=== PATIENT | female | born 1935 | race Caucasian/White ===

== ENCOUNTER → 2018-03-15 09:36 | Outpatient (CLI) | payer MEDICARE, SELFPAY | PROVIDERS: PCP Internal Medicine; Visit Provider Internal Medicine | DX: M85.852 Other specified disorders of bone density and structure, left thigh (principal); Z78.0 Asymptomatic menopausal state | CPT/HCPCS: 77080 ==

== ENCOUNTER → 2019-03-19 10:25 | Outpatient (CLI) | payer MEDICARE, SELFPAY ==
--- NOTE | 2019-03-19 | DI.MG.S_ITS ---
BILATERAL DIGITAL SCREENING MAMMOGRAM 3D/2D WITH CAD: 03/19/2019 CLINICAL: Routine screening. Comparison is made to exams dated: 05/22/2017 mammogram - [facility], 01/07/2010 mammogram, and 09/14/2007 mammogram - [facility]. There are scattered fibroglandular elements in both breasts. Current study was also evaluated with a Computer Aided Detection (CAD) system. No significant masses, calcifications, or other findings are seen in either breast. There has been no significant interval change. IMPRESSION: NEGATIVE There is no mammographic evidence of malignancy. A 1 year screening mammogram is recommended. This exam was interpreted at Station ID: [id number]. NOTE: For mammograms, a report in lay terms will be sent to the patient. Approximately 15% of breast malignancies will not be visualized mammographically. In the management of a palpable breast mass, a negative mammogram must not discourage biopsy of a clinically suspicious lesion. Electronically Signed By: Angelo kaba/ramon:03/21/2019 15:56:29 letter sent: Normal Exam ACR BI-RADS Category 1: Negative [id number]
== END ==
PROVIDERS: PCP Internal Medicine; Visit Provider Internal Medicine
DX: Z12.31 Encounter for screening mammogram for malignant neoplasm of breast (principal)
CPT/HCPCS: 77063; 77067

== ENCOUNTER → 2019-06-06 15:24 | Outpatient (CLI) | payer MEDICARE, SELFPAY ==
--- NOTE | 2019-06-06 | DI.RAD.S_ITS ---
PROCEDURE: XR LUMBAR SPINE 2-3V INDICATIONS: Low back pain TECHNIQUE: 3 views of the lumbar spine were acquired. COMPARISON: None. FINDINGS: Bones: 5 [id number] vertebrae are present. There is mildly levoscoliotic bony alignment. No wedge type vertebral body compression fractures are found that there is a superior endplate mild impaction fracture involving the L2 vertebral body, best seen on the lateral view. The appearance is suggestive of acute or subacute injury. No suspicious bony lesions. Soft tissues: Overlying bowel gas pattern is normal. No suspicious soft tissue calcifications. IMPRESSION: No wedge type compression fracture seen, however there is a mild superior endplate impaction at L2, chronicity uncertain but considered more likely acute or subacute and chronic by appearance. Dictated by: Darrel Ferris M.D. on 06/06/2019 at 16:35 Approved by: Darrel Ferris M.D. on 06/06/2019 at 16:37
--- NOTE | 2019-06-06 | DI.RAD.S_ITS ---
PROCEDURE: XR PELVIS 1-2V INDICATIONS: Low back pain TECHNIQUE: Single frontal view of the pelvis acquired. COMPARISON: None. FINDINGS: Bones: No fractures or dislocations. No suspicious bony lesions. Soft tissues: Visualized bowel gas pattern is normal. No suspicious soft tissue calcifications. IMPRESSION: No trauma found. Dictated by: Darrel Ferris M.D. on 06/06/2019 at 16:37 Approved by: Darrel Ferris M.D. on 06/06/2019 at 16:37
== END ==
PROVIDERS: PCP Internal Medicine; Visit Provider Internal Medicine
DX: M54.5 Low back pain (principal)
CPT/HCPCS: 72100; 72170

== ENCOUNTER 2019-08-21 15:10 | Observation (INO) | payer MEDICARE, SELFPAY ==
[2019-08-21] VITALS (8 sets, daily range): BP systolic 140–159; BP diastolic 58–82; PULSE 62–74; RESP 20; TEMP 36.4–36.6; O2SAT 97–99; BMI 26.9
--- NOTE | 2019-08-21 | DI.ECHO.S_ITS ---
[facility] +---------+ : : [address] : : : : [id number] : : : : Phone: [phone] Echocardiogram Report + + :Name: LUISA BATISTA Study Date: 08/22/2019 Height: 66 in : :[facility] Weight: 166 lb : : Gender: Female BSA: 1.8 m2 : :: 1935 Age: 83 yrs BP: 144/67 mmHg: :Reason For Study: CVA : : Performed By: [facility] Staff : :Referring: DIMITRI ROBLERO : + + Interpretation Summary The left ventricle is borderline dilated. Left ventricular systolic function is low normal. The ejection fraction is estimated to be 50-55%. There are no obvious focal wall motion abnormalities noted but poor endocardial definition reduces the sensitivity for the detection of such. The right ventricle is not well visualized. There is a pacemaker lead in the right ventricle. The right ventricular systolic pressure is estimated to be at least 23 mmHg based on an estimated right atrial pressure of 3 mm Hg. The left atrium is moderately dilated. Right atrium not well visualized. There is no Doppler evidence for an interatrial shunt. There is no significant valvular heart disease. The aortic root is normal size. No obvious source for cardiac embolic TIA/CVA. Procedure: A two-dimensional transthoracic echocardiogram with color flow and Doppler was performed. The study quality was technically adequate. There is no prior echocardiogram noted for this patient. The patient was in normal sinus rhythm during the exam. Left Ventricle: The left ventricle is borderline dilated. There is normal left ventricular wall thickness. Left ventricular systolic function is low normal. The ejection fraction is estimated to be 50-55%. There are no obvious focal wall motion abnormalities noted but poor endocardial definition reduces the sensitivity for the detection of such. Right Ventricle: The right ventricle is not well visualized. There is a pacemaker lead in the right ventricle. Atria: The left atrium is moderately dilated. Right atrium not well visualized. There is a catheter/pacemaker lead seen in the right atrium. The interatrial septum is intact with no evidence for an atrial septal defect. There is no Doppler evidence for an interatrial shunt. Mitral Valve: The mitral valve is normal in structure and function. There is mild mitral annular calcification. There is trace mitral regurgitation. Aortic Valve: The aortic valve is trileaflet. The aortic valve opens well. There is mild aortic valve sclerosis. No aortic regurgitation is present. Tricuspid Valve: The tricuspid valve is not well visualized. There is mild tricuspid regurgitation. The right ventricular systolic pressure is estimated to be at least 23 mmHg based on an estimated right atrial pressure of 3 mm Hg. Pulmonic Valve: The pulmonic valve is not well visualized. There is trace pulmonic regurgitation. There is no significant valvular heart disease. Great Vessels: The aortic root is normal size. The dimensions of the ascending aorta are normal. The pulmonary artery is normal size. The IVC is of normal diameter and collapses greater than 50% with a sniff. This suggests a low right atrial pressure of 3 mm Hg. Pericardium/ Pleura There is no pericardial effusion. There is no pleural effusion. MMode/2D Measurements & Calculations LVIDd: 5.2 cm LVOT diam: 2.0 cm LVIDs: 3.4 cm Ao root diam: 3.2 cm FS: 35.7 % Aortic Jxn: 2.7 cm EPSS: 1.1 cm IVSd: 0.97 cm LVPWd: 1.0 cm LV benavides. diameter/BSA (cm/m^2): 2.8 LV sys. diameter/BSA (cm/m^2): 1.8 LA A2 area: 22.8 cm2 IVC diam: 1.7 cm LA A4 area: 26.0 cm2 LA length (vol): 5.8 cm LA vol: 86.4 ml LA vol index: 46.8 ml/m2 Doppler Measurements & Calculations Ao V2 max: 167.5 cm/sec LVOT Max Tomy: 73.3 cm/sec Ao V2 mean: 112.7 cm/sec LV V1 max P.1 mmHg Ao max P.2 mmHg LV V1 VTI: 17.6 cm Ao mean P.8 mmHg CHEPE(I,D): 1.3 cm2 Ao V2 VTI: 39.4 cm CHEPE(V,D): 1.3 cm2 sev ratio: 0.45 CHEPE indexed to BSA (cm^2/m^2): 0.73 MV E max tomy: 77.5 cm/sec TR max tomy: 212.1 cm/sec MV A max tomy: 86.3 cm/sec TR max P.0 mmHg MV E/A: 0.90 PA V2 max: 73.2 cm/sec Med Peak E' Tomy: 6.5 cm/sec PA V2 mean: 51.0 cm/sec E/E' med: 11.9 PA mean P.2 mmHg Lat Peak E' Tomy: 7.9 cm/sec PA Accel Time: 0.12 sec E/E' lat: 9.7 E/e' average: 10.8 MV dec time: 0.20 sec SV(LVOT): 52.8 ml Reading Physician:01:38 PM
--- NOTE | 2019-08-21 15:12 | DI.CT.S_ITS ---
PROCEDURE: CT HEAD/BRAIN WO CON INDICATIONS: slurring of speech,TPA candidate TECHNIQUE: Noncontrast 4.5 mm thick angled axial sections acquired from the foramen magnum to the vertex, with coronal and sagittal reformats. For radiation dose reduction, the following was used: automated exposure control, adjustment of mA and/or kV according to patient size. COMPARISON: [facility], CT, HEAD WITHOUT CONTRAST, 06/22/2014, 21:40. FINDINGS: Image quality: Excellent. CSF spaces: Basal cisterns are patent. No extra-axial fluid collections. The ventricles are symmetric in size and shape. Brain: No intracranial bleeds or masses. There is cerebral volume loss for age, with resultant ventricular and sulcal prominence. There are periventricular and deep white matter chronic small vessel ischemic changes. There is encephalomalacia related to an old right [employer] distribution infarct. There is intracranial internal carotid artery atherosclerosis. Skull and face: Calvarium and visualized facial bones appear intact, without suspicious lesions. Sinuses: Visualized sinuses and mastoids are clear. The right nasal polyp. IMPRESSION: 1. Age-related line loss and mild small vessel ischemic change. 2. Old right [employer] SUPER[employer] distribution infarct. 3. No evidence of acute stroke, hemorrhage, or mass. Comment: Findings were discussed with Dr. Mahoney at the time of study dictation on 08/21/19 at 1537 hrs. Dictated by: Zain Sood M.D. on 08/21/2019 at 15:35 Approved by: Zain Sood M.D. on 08/21/2019 at 15:38
--- NOTE | 2019-08-21 15:29 | ED_ITS ---
HPI - Neuro Symptoms/Deficit General Chief Complaint: Neuro Symptoms/Deficit Stated Complaint: difficulty speaking, wobbling Time Seen by Provider: 08/21/19 15:12 Source: patient, family and EMS Mode of arrival: EMS Limitations: no limitations History of Present Illness HPI Narrative: The patient is an 83-year-old female with history of CVA and pacemaker presenting as code stroke with slurring of speech that started at 2:00 p.m.. states that at 2:00 p.m. he noticed that her speech was very thickened and she was difficult to understand. She no facial droop or unilateral weakness. She does take Plavix daily for her previous stroke and she had cardiac issues when her pacemaker was placed. She is currently able to follow commands and I am able to understand her. She is confused about the year. Onset (ago): hour(s) (1.5) Timing confirmed by: spouse Location: speech History of same: Yes Severity: mild Context: sudden onset Related Data Home Medications Medication Instructions Recorded Confirmed amlodipine 5 mg PO DAILY 08/21/19 08/21/19 aspirin [Adult Low Dose Aspirin] 81 mg PO DAILY 08/21/19 08/21/19 carvedilol 6.25 mg PO BID 08/21/19 08/21/19 cholecalciferol (vitamin D3) 1,000 unit PO DAILY 08/21/19 08/21/19 [Vitamin D3] clopidogrel [Plavix] 75 mg PO DAILY 08/21/19 08/21/19 dorzolamide 1 drp EYE-BOTH BID 08/21/19 08/21/19 prednisone 10 mg PO SEEINSTR 08/21/19 08/21/19 rosuvastatin 10 mg PO DAILY 08/21/19 08/21/19 travoprost [Travatan Z] 1 drp EYE-BOTH DAILY 08/21/19 08/21/19 zoledronic [id number] See Rx Instructions .ROUTE .COMPLEX 08/21/19 08/21/19 [Reclast] zolpidem 5 mg PO BEDTIME PRN 08/21/19 08/21/19 Allergies Allergy/AdvReac Type Severity Reaction Status Date / Time paroxetine AdvReac Drowsy Verified 08/21/19 18:18 IODINE Allergy Unknown Hives Uncoded 08/21/19 18:18 Review of Systems Review of Systems Narrative: GENERAL: Denies chills, fatigue, malaise, fever, sweats, travel HEENT: Denies sinus pain, ear pain, sore throat, difficulty swallowing, neck pain RESPIRATORY: Denies dyspnea, cough, wheezing, hemoptysis, sputum. CARDIOVASCULAR: Denies chest pain, palpitations, orthopnea, edema GASTROINTESTINAL: See HPI : Denies dysuria, frequency, incontinence, hematuria, urinary retention, flank pain. MUSCULOSKELETAL: Denies weakness, joint pain, or bony pain SKIN: No rash, no erythema, no pruritus NEUROLOGIC: Denies weakness, dizziness, headache, numbness, change in speech, confusion PSYCHIATRIC: No concerning psychosocial issues. 12 point review of systems is negative except for those stated above and HPI Patient History Medical History (Updated 08/21/19 @ 18:42 by Brenna Dumont RN) Cardiac tamponade (Acute) CVA (cerebral vascular accident) (Acute) Essential (primary) hypertension (Acute) Gout (Acute) Heart failure (Acute) Mixed hyperlipidemia (Acute) Osteopenia (Acute) Pacemaker (Acute) Social History household members: spouse Smoking Status: Never smoker alcohol intake: never Substance Use Type: does not use Exam Initial Vital Signs Initial Vital Signs: Vital Signs Temperature 97.8 F 08/21/19 15:35 Pulse Rate 74 08/21/19 15:35 Respiratory Rate 20 08/21/19 15:35 Blood Pressure 154/61 H 08/21/19 15:35 Pulse Oximetry 99 08/21/19 15:35 GENERAL: Alert pleasant elderly female and in no acute distress. HEENT: Head atraumatic,EOMI, pupils reactive, face symmetric, moist mucous membranes CARDIOVASCULAR: Regular rate and rhythm without murmurs, rubs or gallops. RESPIRATORY: Breath sounds equal bilaterally, no wheezes rales or rhonchi. ABDOMEN: Soft, nontender. Normoactive bowel sounds all 4 quadrants. No guarding or rebound. EXTREMITIES: Normal range of motion, no clubbing or edema. Neurovascularly intact NEUROLOGICAL: Alert and oriented x3.Normal gait and slightly slurred speech but understandable. Cranial nerves II through XII grossly intact. Good pqutet-fb-[id number], good jzox-wd-cvsh, strength equal bilaterally, no dysarthria or aphasia, sensation in tact to soft touch bilaterally, no visual changes, no facial droop SKIN: Warm, dry, no laceration, no petechiae, no rashes or lesions. Scores NIH Stroke Scale Level of Conciousness: Alert, keenly responsive Ask month/age: Answers one question correctly, intubated follow commands Open/close eyes, close hand: Performs both tasks correctly Best gaze horizontal: Normal Visual rincon: No visual loss Facial palsy: Normal symetrical movement Left arm drift: No drift for full 10 sec Right arm drift: No drift for full 10 sec Left leg drift: No drift for full 10 sec Right leg drift: No drift for full 10 sec Limb ataxia: Absent Sensory on face/arms/legs: Normal, no sensory loss Best language: Mild to moderate, slurs some words Dysarthria: Normal Extinction or inattention: No abnormality Total NIH Stroke scale score: 2 Course Orders Ordered: ED Orders 08/21/19 15:12 CT head/brain wo con Stat 08/21/19 15:26 EKG-12 Lead Stat 08/21/19 15:30 Complete Blood Count AUTO DIFF Stat Comprehensive Metabolic Panel Stat Partial Thromboplastin Time Stat Prothrombin Time INR Stat Troponin I Stat 08/21/19 16:24 Urine Culture Stat Urine Drug Screen, Rapid Stat Urine Microscopic Stat Sodium Chloride (Normal Saline 0.9%) 1,000 mls @ 150 mls/hr IV CONT ALMA ROSA Last Infusion: 08/21/19 17:43 Dose: 150 mls/hr Documented by: Admin: 08/21/19 16:49 Dose: 150 mls/hr Documented by: RAHEEM Influenza Virus Vaccine (Flu Vaccine) 0.5 ml IM .ONCE ONE Stop: 08/22/19 09:01 Discontinued Medications Clopidogrel Bisulfate (Plavix) 75 mg PO NOW ONE Stop: 08/21/19 15:53 Last Admin: 08/21/19 16:49 Dose: 75 mg Documented by: RAHEEM Consultations Consultation #1: Neurology, at [facility] is has been updated patient's symptoms test results. Due to patient's extreme low NIH stroke score does not recommend tPA Time: 15:44 Vital Signs Vital signs: Vital Signs - 8 hr 08/21/19 15:35 08/21/19 16:30 Temperature 97.8 F Pulse Rate 74 68 Respiratory Rate 20 Blood Pressure 154/61 H Blood Pressure [Left Arm] 155/61 H Pulse Oximetry 99 99 MDM - Neuro Symptoms/Deficit Lab Data Attestation: I reviewed the patient's lab results. Result diagrams: 08/21/19 15:30 08/21/19 15:30 Labs: Lab Results 08/21/19 08/21/19 08/21/19 Range/Units 15:30 15:30 15:30 WBC 6.2 (4.5-11.0) X10^3/uL RBC 4.09 (4.0-5.2) X10^6/uL Hgb 12.4 (12.0-16.0) g/dL Hct 37.1 (36-46) % MCV 90.6 (80-100) fL MCH 30.4 (26-34) PG MCHC 33.5 (30-36) % RDW 13.0 (11.6-14.8) % Plt Count 187 (150-400) X10^3/uL Neut % (Auto) 46.1 L (50-75) % Lymph % (Auto) 41.9 H (25-40) % [place] % (Auto) 7.0 (3-14) % Eos % (Auto) 3.6 (2-4) % Baso % (Auto) 1.4 (0-2) % Neut # (Auto) 2900 (1357-2901) /uL Lymph # (Auto) 2600 (5708-8946) /uL [place] # (Auto) 400 (0-900) /uL Eos # (Auto) 200 (0-450) /uL Baso # (Auto) 100 (0-100) /uL PT 10.6 (10.1-12.7) SECONDS INR 0.9 (0.9-1.3) APTT 32 (26.4-36.2) SECONDS Sodium 143 (137-145) mmol/L Potassium 3.7 (3.4-5.1) mmol/L Chloride 107 (98-107) mmol/L Carbon Dioxide 28 (22-32) mmol/L BUN 20 H (7-17) mg/dL Creatinine 0.90 (0.52-1.04) mg/dL Estimated GFR 59.8 L (>60) mL/min BUN/Creatinine Ratio 22.2 H (6-22) Glucose 90 (80-110) mg/dL Calcium 9.6 (8.4-10.2) mg/dL Total Bilirubin 0.3 (0.2-1.3) mg/dL AST 25 (14-36) IU/L ALT 15 (<35) IU/L Alkaline Phosphatase 58 (38-126) U/L Troponin I < 0.012 (0.01-0.034) ng/mL Total Protein 6.7 (6.3-8.2) g/dL Albumin 4.1 (3.5-5.0) g/dL Globulin 2.6 (1.7-4.1) g/dL Albumin/Globulin Ratio 1.6 (1.0-2.8) Urine RBC (0-5/HPF) Urine WBC (0-5/HPF) Ur Squamous Epith Cells (0-5/HPF) Amorphous Sediment Urine Bacteria (None) Urine Mucus (Negative) Ur Culture Indicated? U Morph 300 ng/mL cutoff (Negative) Ur Oxycodone Screen (Negative) Urine Methadone Screen (Negative) Ur Barbiturates Screen (Negative) U Tricyclic Antidepress (Negative) Ur Phencyclidine Scrn (Negative) Ur Amphetamines Screen (Negative) U Methamphetamines Scrn (Negative) Ur MDMA Scrn (Ecstasy) (Negative) U Benzodiazepines Scrn (Negative) Urine Cocaine Screen (Negative) U Marijuana (THC) Screen (Negative) 08/21/19 08/21/19 Range/Units 16:24 16:24 WBC (4.5-11.0) X10^3/uL RBC (4.0-5.2) X10^6/uL Hgb (12.0-16.0) g/dL Hct (36-46) % MCV (80-100) fL MCH (26-34) PG MCHC (30-36) % RDW (11.6-14.8) % Plt Count (150-400) X10^3/uL Neut % (Auto) (50-75) % Lymph % (Auto) (25-40) % [place] % (Auto) (3-14) % Eos % (Auto) (2-4) % Baso % (Auto) (0-2) % Neut # (Auto) (2356-0818) /uL Lymph # (Auto) (6041-7062) /uL [place] # (Auto) (0-900) /uL Eos # (Auto) (0-450) /uL Baso # (Auto) (0-100) /uL PT (10.1-12.7) SECONDS INR (0.9-1.3) APTT (26.4-36.2) SECONDS Sodium (137-145) mmol/L Potassium (3.4-5.1) mmol/L Chloride (98-107) mmol/L Carbon Dioxide (22-32) mmol/L BUN (7-17) mg/dL Creatinine (0.52-1.04) mg/dL Estimated GFR (>60) mL/min BUN/Creatinine Ratio (6-22) Glucose (80-110) mg/dL Calcium (8.4-10.2) mg/dL Total Bilirubin (0.2-1.3) mg/dL AST (14-36) IU/L ALT (<35) IU/L Alkaline Phosphatase (38-126) U/L Troponin I (0.01-0.034) ng/mL Total Protein (6.3-8.2) g/dL Albumin (3.5-5.0) g/dL Globulin (1.7-4.1) g/dL Albumin/Globulin Ratio (1.0-2.8) Urine RBC None seen (0-5/HPF) Urine WBC 5-10/hpf H (0-5/HPF) Ur Squamous Epith Cells 1-5 /hpf (0-5/HPF) Amorphous Sediment 3+ Urine Bacteria Moderate (10-30) H (None) Urine Mucus 2+ H (Negative) Ur Culture Indicated? Specimen cultured U Morph 300 ng/mL cutoff Negative (Negative) Ur Oxycodone Screen Negative (Negative) Urine Methadone Screen Negative (Negative) Ur Barbiturates Screen Negative (Negative) U Tricyclic Antidepress Negative (Negative) Ur Phencyclidine Scrn Negative (Negative) Ur Amphetamines Screen Negative (Negative) U Methamphetamines Scrn Negative (Negative) Ur MDMA Scrn (Ecstasy) Negative (Negative) U Benzodiazepines Scrn Negative (Negative) Urine Cocaine Screen Negative (Negative) U Marijuana (THC) Screen Negative (Negative) Point of Care Testing Glucose POC 86 Urine Dip Bedside Urine Glucose Negative Bedside Urine Bilirubin - Negative Bedside Urine Ketone - Negative Urine Specific Celestine 1.010 Bedside Urine Occult Blood - Negative Bedside Urine pH 6.5 Bedside Urine Protein - Negative Bedside Urine Urobilinogen +/- 1mg Bedside Urine Nitrite - Negative Bedside Urine Leukocytes + [address] scan - head: Radiologist's impression: PROCEDURE: CT HEAD/BRAIN WO CON INDICATIONS: slurring of speech,TPA candidate TECHNIQUE: Noncontrast 4.5 mm thick angled axial sections acquired from the foramen magnum to the vertex, with coronal and sagittal reformats. For radiation dose reduction, the following was used: automated exposure control, adjustment of mA and/or kV according to patient size. COMPARISON: [facility], CT, HEAD WITHOUT CONTRAST, 06/22/2014, 21:40. FINDINGS: Image quality: Excellent. CSF spaces: Basal cisterns are patent. No extra-axial fluid collections. The ventricles are symmetric in size and shape. Brain: No intracranial bleeds or masses. There is cerebral volume loss for age, with resultant ventricular and sulcal prominence. There are periventricular and deep white matter chronic small vessel ischemic changes. There is encephalomalacia related to an old right [employer] distribution infarct. There is intracranial internal carotid artery atherosclerosis. Skull and face: Calvarium and visualized facial bones appear intact, without suspicious lesions. Sinuses: Visualized sinuses and mastoids are clear. The right nasal polyp. IMPRESSION: 1. Age-related line loss and mild small vessel ischemic change. 2. Old right [employer] distribution infarct. 3. No evidence of acute stroke, hemorrhage, or mass. Comment: Findings were discussed with Dr. Mahoney at the time of study dictation on 08/21/19 at 1537 hrs. Dictated by: Zain Sood M.D. on 08/21/2019 at 15:35 ECG Data Attestation: I personally reviewed and interpreted this ECG as follows: Prior ECG tracings: available for review Interpretation: paced rate [address] changes no T-wave inversions similar to prior EKG MDM Narrative Medical decision making narrative: Patient does seem to be improving family at bedside. Patient is not a tPA candidate due to her extremely low NIH stroke scale and improving symptoms. Neurology at [facility] agrees family also agrees. She is now able to play Candy [employer] which is something she typically does. She does still have some slight slurring. Patient is given her nightly dose of Plavix in the ED. Dr. mcdaniel updated on patient's symptoms test results, agrees with observation. Discharge Plan Departure Patient Disposition: Admitted as Observation Clinical Impression: CVA (cerebral vascular accident) Qualifiers: CVA mechanism: unspecified Qualified Code(s): I63.9 - Cerebral infarction, unspecified Discharge Date/Time: 08/21/19 17:35 Admit Date/Time: 08/21/19 16:51 Admit Provider: Lisa Mcdaniel
[2019-08-21 15:48] LABS: Add Manual Diff / Slide Review NO; Basophils Absolute Auto 100 /uL (0-100); Basophils Percent Auto 1.4 % (0-2); Eosinophils Absolute Auto 200 /uL (0-450); Eosinophils Percent Auto 3.6 % (2-4); Hematocrit 37.1 % (36-46); Hemoglobin 12.4 g/dL (12.0-16.0); INR 0.9 (0.9-1.3); Lymphocytes Absolute Auto 2600 /uL (1100-4500); Lymphocytes Percent Auto 41.9 % (25-40); Mean Corpuscular HGB Conc 33.5 % (30-36); Mean Corpuscular Hemoglobin 30.4 PG (26-34); Mean Corpuscular Volume 90.6 fL (80-100); Monocytes Absolute Auto 400 /uL (0-900); Neutrophils Absolute Auto 2900 /uL (1500-7000); Neutrophils Percent Auto 46.1 % (50-75); Platelet Count 187 X10^3/uL (150-400); Prothrombin Time 10.6 SECONDS (10.1-12.7); Red Blood Cell Count 4.09 X10^6/uL (4.0-5.2); White Blood Cell Count 6.2 X10^3/uL (4.5-11.0)
[2019-08-21 15:50] LABS: PTT Partial Thromboplastin Tim 32 SECONDS (26.4-36.2)
[2019-08-21 15:52] LABS: Alanine Aminotransferase 15 IU/L (<35); Albumin 4.1 g/dL (3.5-5.0); Albumin Globulin Ratio 1.6 (1.0-2.8); Alkaline Phosphatase 58 U/L (38-126); Aspartate Aminotransferase 25 IU/L (14-36); BUN Creatinine Ratio 22.2 (6-22); Bilirubin Total 0.3 mg/dL (0.2-1.3); Blood Urea Nitrogen 20 mg/dL (7-17); Calcium 9.6 mg/dL (8.4-10.2); Carbon Dioxide 28 mmol/L (22-32); Chloride 107 mmol/L (98-107); Estimated Glomerular Filt Rate 59.8 mL/min (>60); Globulin 2.6 g/dL (1.7-4.1); Glucose 90 mg/dL (80-110); HEMOLYSIS 16 (0-50); Potassium 3.7 mmol/L (3.4-5.1); Sodium 143 mmol/L (137-145); Total Protein 6.7 g/dL (6.3-8.2)
[2019-08-21 16:04] LABS: Troponin I < 0.012 ng/mL (0.01-0.034)
[2019-08-21 16:38] LABS: RBC Urine None Seen (0-5/HPF)
[2019-08-21 16:45] LABS: Amorphous Sediment Urine 3+; Bacteria Urine Moderate (10-30); Culture Indicated Urine Specimen Cultured; Mucus Urine 2+ (Negative); Squamous Epithelial Cell Urine 1-5 /HPF (0-5/HPF); WBC Urine 5-10/HPF (0-5/HPF)
[2019-08-21 16:47] LABS: UR Morphine/Opiate cutoff 300 Negative (Negative); Ur Creatinine Normal (Normal); Ur Specific Gravity Normal (Normal); Urine Amphetamines Negative (Negative); Urine Barbiturates Negative (Negative); Urine Benzodiazepines Negative (Negative); Urine Cocaine Negative (Negative); Urine MDMA Negative (Negative); Urine Methadone Negative (Negative); Urine Methamphetamines Negative (Negative); Urine Oxycodone Negative (Negative); Urine Phencyclidine Negative (Negative); Urine Tetrahydrocannabinol Negative (Negative); Urine Tricyclic Antidepressant Negative (Negative); Urine pH Normal (Normal)
[2019-08-21] MEDS: SODIUM CHLORIDE 0.9% 1,000 ML 150 ML IV (16:49)
[2019-08-21] MEDS: CLOPIDOGREL 75 MG TABLET PO (16:49)
--- NOTE | 2019-08-21 20:35 | P.HP_ITS ---
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 The patient states that from her perception she has had no difficulties however she is told by her and a friend who is an anesthesiologist that the patient had slurred speech and was unintelligible that started abruptly at approximately 2:00 p.m.. The patient has had 2 prior [place] and has a residual left upper visual field cut. She has had no associated symptoms and denies headache or nausea, no further visual changes, and no ataxia or weakness. She reports that she has been under increased stress coordinating her 's 89th birthday next week. The patient denies any recent illness or cold symptoms, no fevers or chills, nasal congestion or sore throat. She denies chest pain or palpitations, has no shortness of breath cough or wheezing. She reports no abdominal pain, heartburn, nausea vomiting. She denies changes in bowel habits and has no urinary symptoms denying urgency frequency or burning. Upon arrival in the emergency department the patient the patient was afebrile with a temperature of 97.8?, heart rate of 74, blood pressure 154/61, respirations of 20 with an oxygen saturation 99% on room air. A code stroke was initiated upon arrival to the emergency department. 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 In the emergency department the patient NIH score of 2. On laboratory analysis she has a normal white count with 6.2, hemoglobin of 12.4, hematocrit 37.1, platelets of 187. Her electrolytes are within normal limits she has a BUN of 20 and creatinine 0.9. She her nonfasting glucose is 90. Liver function tests are within normal limits. PT is 10.6 with a PTT of 32 and INR of 0.9. U tox is negative. A screening urinalysis was positive for WBCs and bacteria and is sent for culture. The patient is admitted to the medicine service for further evaluation of CVA. Patient History Medical History (Updated 08/21/19 @ 20:52 by CATRACHO Jha) Cardiac arrest (Acute) Cardiac tamponade (Acute) CVA (cerebral vascular accident) (Acute) Essential (primary) hypertension (Acute) Glaucoma (Acute) Gout (Acute) Heart failure (Acute) History of myxoma (Acute) Malignant melanoma (Acute) Mixed hyperlipidemia (Acute) Osteopenia (Acute) Osteoporosis (Acute) Pacemaker (Acute) Sick sinus syndrome (Acute) Surgical History (Updated 08/21/19 @ 20:52 by CATRACHO Jha) History of appendectomy (Acute) History of bowel resection (Acute) History of cholecystectomy (Acute) History of hand surgery (Acute) History of skin graft (Acute) Status post blepharoplasty of both eyes (Acute) Family & Social History Family History (Updated 08/21/19 @ 20:56 by CATRACHO Jha) Father Myocardial infarction Smoker Mother Endocrine disorder Brother Mesothelioma Son No problems noted. Social History: household members spouse Prior Living Arrangements House Safety & Behavioral: Feels Safe in Current Yes Environment Suicidal Ideation Description None Tobacco & Substance use: Smoking Status Never smoker alcohol intake never Substance Use Type does not use Comment: The patient lives with her to whom she has been for 40 years. Lives in a single family single level home. Father at 58 following a heart attack and was a smoker and her mother at age 76 reportedly from endocrine imbalance. She has 1 brother who had mesothelioma and his son who of complications of pneumonia. 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 Smoking: Patient denies use of tobacco products. Alcohol: Patient denies consume alcohol. Substance use: Patient denies recreation pharmaceuticals, herbal or cannabis products. Advanced directives: The patient has completed advanced directives and states her desire to be FULL CODE. She further states that she does not want prolonged life-sustaining treatment and designates her , Dr. Henry Burton, to be her surrogate decision maker. Meds Home Medications and Allergies Home Medications Medication Instructions Recorded Confirmed Type amlodipine 5 mg PO DAILY 08/21/19 08/21/19 History aspirin [Adult Low Dose Aspirin] 81 mg PO DAILY 08/21/19 08/21/19 History carvedilol 6.25 mg PO BID 08/21/19 08/21/19 History cholecalciferol (vitamin D3) 1,000 unit PO DAILY 08/21/19 08/21/19 History [Vitamin D3] clopidogrel [Plavix] 75 mg PO DAILY 08/21/19 08/21/19 History dorzolamide 1 drp EYE-BOTH BID 08/21/19 08/21/19 History prednisone 10 mg PO SEEINSTR 08/21/19 08/21/19 History rosuvastatin 10 mg PO DAILY 08/21/19 08/21/19 History travoprost [Travatan Z] 1 drp EYE-BOTH DAILY 08/21/19 08/21/19 History zoledronic [id number] See Rx Instructions .ROUTE .COMPLEX 08/21/19 08/21/19 History [Reclast] zolpidem 5 mg PO BEDTIME PRN 08/21/19 08/21/19 History Allergies Allergy/AdvReac Type Severity Reaction Status Date / Time paroxetine AdvReac Drowsy Verified 08/21/19 18:18 IODINE Allergy Unknown Hives Uncoded 08/21/19 18:18 Review of Systems Review of Systems ROS Unobtainable: All systems reviewed & are unremarkable except as noted in HPI and below Exam Vital Signs (past 8 hours): - 08/21/19 15:35 08/21/19 16:30 08/21/19 17:00 Temperature 97.8 F Pulse Rate 74 68 68 Respiratory Rate 20 Blood Pressure 154/61 H Blood Pressure [Left Arm] 155/61 H 159/58 H Pulse Oximetry 99 99 99 08/21/19 17:30 08/21/19 18:27 08/21/19 19:30 Temperature 97.6 F 97.6 F Pulse Rate 65 65 64 Respiratory Rate 20 20 Blood Pressure 156/70 H 151/72 H Blood Pressure [Left Arm] 150/63 H Pulse Oximetry 97 97 98 Oxygen Delivery Method Room Air Oxygen Flow Rate 0 Narrative Exam Narrative: GENERAL APPEARANCE: well developed, well nourished, BMI of 26.9, in no acute distress. HEENT: Normocephalic, PERRLA, conjunctiva clear, EOMs intact without nystagmus, left upper visual field cut to approximately 10? off midline, no sinus tenderness to percussion, no rhinorrhea, mucous membranes are moist and pink without lesions or exudate. NECK/THYROID: neck supple, no JVD, no carotid bruit, no thyromegaly, trachea midline. LYMPH NODES: no cervical or supraclavicular lymphadenopathy. SKIN: [place], warm and dry, no suspicious lesions, no rashes, ulcerations or petechiae. HEART: regular rate and rhythm, S1-S2, no murmur, no rubs or gallops, brisk capillary refill, no edema LUNGS: clear to auscultation bilaterally, no coarseness crackles or wheezing, no cough present CHEST: Symmetrical movement, no accessory muscle use, no pain to AP and lateral compression. ABDOMEN: Well-healed surgical scars abdominal wall, dull to percussion, no distention, no abdominal tenderness, no guarding or peritoneal signs, no organomegaly, no flank or suprapubic tenderness, active bowel tones. BACK: Normal curvature, nontender to palpation, no CVA tenderness on percussion EXTREMITIES: Well-healed surgical scar right anterior lower leg moves all extremities, strength is 5/5 and symmetrical, no deformities or joint effusions. NEUROLOGIC: AAO x 3, states day and month but reports year as 1919, mild difficu lty word finding, no facial asymmetry or ptosis, cranial nerves II-XII grossly intact, sensation intact to light touch, hearing grossly normal to speech. NIH score of 2 PSYCH: alert, cognitive function intact, good eye contact, appropriate with stable behavior Objective Labs Result Diagrams: 08/21/19 15:30 08/21/19 15:30 Labs: Laboratory Results - last 24 hr 08/21/19 08/21/19 08/21/19 15:30 15:30 15:30 WBC 6.2 RBC 4.09 Hgb 12.4 Hct 37.1 MCV 90.6 MCH 30.4 MCHC 33.5 RDW 13.0 Plt Count 187 Neut % (Auto) 46.1 L Lymph % (Auto) 41.9 H [place] % (Auto) 7.0 Eos % (Auto) 3.6 Baso % (Auto) 1.4 Neut # (Auto) 2900 Lymph # (Auto) 2600 [place] # (Auto) 400 Eos # (Auto) 200 Baso # (Auto) 100 PT 10.6 INR 0.9 APTT 32 Sodium 143 Potassium 3.7 Chloride 107 Carbon Dioxide 28 BUN 20 H Creatinine 0.90 Estimated GFR 59.8 L BUN/Creatinine Ratio 22.2 H Glucose 90 Calcium 9.6 Total Bilirubin 0.3 AST 25 ALT 15 Alkaline Phosphatase 58 Troponin I < 0.012 Total Protein 6.7 Albumin 4.1 Globulin 2.6 Albumin/Globulin Ratio 1.6 Urine RBC Urine WBC Ur Squamous Epith Cells Amorphous Sediment Urine Bacteria Urine Mucus Ur Culture Indicated? U Morph 300 ng/mL cutoff Ur Oxycodone Screen Urine Methadone Screen Ur Barbiturates Screen U Tricyclic Antidepress Ur Phencyclidine Scrn Ur Amphetamines Screen U Methamphetamines Scrn Ur MDMA Scrn (Ecstasy) U Benzodiazepines Scrn Urine Cocaine Screen U Marijuana (THC) Screen 08/21/19 08/21/19 16:24 16:24 WBC RBC Hgb Hct MCV MCH MCHC RDW Plt Count Neut % (Auto) Lymph % (Auto) [place] % (Auto) Eos % (Auto) Baso % (Auto) Neut # (Auto) Lymph # (Auto) [place] # (Auto) Eos # (Auto) Baso # (Auto) PT INR APTT Sodium Potassium Chloride Carbon Dioxide BUN Creatinine Estimated GFR BUN/Creatinine Ratio Glucose Calcium Total Bilirubin AST ALT Alkaline Phosphatase Troponin I Total Protein Albumin Globulin Albumin/Globulin Ratio Urine RBC None seen Urine WBC 5-10/hpf H Ur Squamous Epith Cells 1-5 /hpf Amorphous Sediment 3+ Urine Bacteria Moderate (10-30) H Urine Mucus 2+ H Ur Culture Indicated? Specimen cultured U Morph 300 ng/mL cutoff Negative Ur Oxycodone Screen Negative Urine Methadone Screen Negative Ur Barbiturates Screen Negative U Tricyclic Antidepress Negative Ur Phencyclidine Scrn Negative Ur Amphetamines Screen Negative U Methamphetamines Scrn Negative Ur MDMA Scrn (Ecstasy) Negative U Benzodiazepines Scrn Negative Urine Cocaine Screen Negative U Marijuana (THC) Screen Negative Assessment & Plan Assessment & Plan narrative: This is an 83-year-old female with acute onset of dysarthria and difficulty word finding with sudden onset approximately 2:00 p.m.. Change was witnessed by her and friends and brought to the emergency room. 1. CVA, acute, present on admission, active -history of 2 prior strokes per patient report with residual left upper visual field cut that persists extension or change. -dysarthria sudden in onset, no headache, ataxia, visual changes or facial droop noted. Per the patient she is unaware of the changes. -head CT is negative for acute stroke bleed or mass. -EKG is sinus rhythm with ventricular pacing, patient is monitored on telemetry for arrhythmias. -patient is on clopidogrel 75 mg daily and aspirin 81 mg daily from prior strokes which are continued. -ordered echocardiogram -ordered CT angio of the head and carotids for tomorrow afternoon, patient is unable to undergo an MRI due to implanted AICD. Will need premedication related to iodine allergy. -serial neurological assessments by nursing, PT, OT and ST to consult and evaluate. -will hold patient's home zolpidem. 2. Essential hypertension, chronic, present on admission, active. -blood pressure is elevated on arrival to ER at 154/61 and remains elevated in the 150s following admission. No complaints of chest pain or headache. -continue patient's routine home medications developed amlodipine 5 mg daily and carvedilol 6.25 mg twice daily. 3. Sick sinus syndrome, present on admission, stable -patient's and implanted AICD. No chest pain or palpitations. -12 lead EKG shows sinus rhythm with ventricular pacing, no ectopy, no ST or T- wave abnormalities. -on telemetry patient with intermittent AV pacing. 4. Mixed Hyperlipidemia, chronic, active. -patient with history of hyperlipidemia on rosuvastatin 10 mg daily. -rosuvastatin is increased to 20 mg daily. -will obtain lipid panel in the morning. 5. Low pressure glaucoma, chronic, stable. -patient reports seen cocoa room operator recently for checkup with no visual changes, persistent left upper field cut as sequelae of stroke. -continue patient's eyedrops of dorzolamide 1 drop each eye twice daily and travoprost 1 drop in both eyes once daily. VTE prophylaxis: Bilateral SCDs, patient is already on clopidogrel and aspirin, add Lovenox 40 mg daily. The patient is admitted to the hospital due to the severity of her symptoms and risk for potential complications and adverse events. The patient is admitted as an inpatient for further evaluation and monitoring for CVA. Scores GCS [place] coma scale eye opening: Spontaneous [place] coma scale verbal response: Orientated (Mild difficulty word finding) [place] coma scale motor response: Obey commands [place] coma scale total score: 15 NIHSS Level of Conciousness: Alert, keenly responsive Ask month/age: Answers both questions correctly. Open/close eyes, close hand: Performs both tasks correctly Best gaze horizontal: Normal Visual rincon: Partial hemianopia (History left lateral upper visual field cut without change.) Facial palsy: Normal symetrical movement Left arm drift: No drift for full 10 sec Right arm drift: No drift for full 10 sec Left leg drift: No drift for full 5 sec Right leg drift: No drift for full 5 sec Limb ataxia: Absent Sensory on face/arms/legs: Normal, no sensory loss Best language: No aphasia, normal Dysarthria: Mild to mod,some slurring Extinction or inattention: No abnormality Total NIH Stroke scale score: 2
[2019-08-21] MEDS: carvediloL 12.5 MG TABLET 6.25 MG PO (22:15)
[2019-08-21] MEDS: SODIUM CHLORIDE 0.9% 1,000 ML 50 ML IV (22:20)
--- NOTE | 2019-08-21 23:49 | PC.NURSE ---
Admission/Evening Shift Note- Patient arrived to room via strether from ER. Patient walked to steady gait fromstretcher to bed without issue. Patient had had a fall within the last 3 months, fall precautions discussed. Admission questions done, home medications reviewed, and physical assessment completed. NIH test done with score of 0. No complaints of pain, and no complaints of N/v. Patient oriented to bed and bed controls, room, bathroom, lights, phone, menu, and call mccullough/tv remote. safety measures in place. bed alarm activated. patient agrees to call for assistance. will continue to monitor.
[2019-08-22] VITALS (8 sets, daily range): BP systolic 140–157; BP diastolic 67–85; PULSE 62–69; RESP 16–18; TEMP 36.3–36.7; O2SAT 96–98
--- NOTE | 2019-08-22 00:40 | PC.NURSE ---
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
--- NOTE | 2019-08-22 01:31 | PC.NURSE ---
Patient is alert and oriented. Has chronic left upper visual field loss and slight slurring of some words. NIH is 2. Breath sounds CTA with RA sat of 96%. HRR with telemetry reading of v-paced. Denies nausea. BT present and abdomen is soft. Denies dysuria, frequency, urgency or incontinence. Able to turn self in bed and gets up to bathroom with walker and 1 assist. Denies pain. Refusing to wear SCD's despite teaching regarding DVT prevention; reminded to ankle wave when awake. Fall risk score is high and bed alarm is activated.
[2019-08-22 05:34] LABS: Add Manual Diff / Slide Review NO; Basophils Absolute Auto 100 /uL (0-100); Basophils Percent Auto 1.2 % (0-2); Eosinophils Absolute Auto 200 /uL (0-450); Eosinophils Percent Auto 3.6 % (2-4); Hematocrit 35.6 % (36-46); Hemoglobin 12.1 g/dL (12.0-16.0); Lymphocytes Absolute Auto 2300 /uL (1100-4500); Lymphocytes Percent Auto 36.7 % (25-40); Mean Corpuscular HGB Conc 33.9 % (30-36); Mean Corpuscular Hemoglobin 30.4 PG (26-34); Mean Corpuscular Volume 89.5 fL (80-100); Monocytes Absolute Auto 500 /uL (0-900); Monocytes Percent Auto 7.2 % (3-14); Neutrophils Absolute Auto 3200 /uL (1500-7000); Neutrophils Percent Auto 51.3 % (50-75); Platelet Count 169 X10^3/uL (150-400); Red Blood Cell Count 3.98 X10^6/uL (4.0-5.2); Red Cell Distribution Width 12.9 % (11.6-14.8); White Blood Cell Count 6.3 X10^3/uL (4.5-11.0)
[2019-08-22 05:49] LABS: Blood Urea Nitrogen 14 mg/dL (7-17); Carbon Dioxide 27 mmol/L (22-32); Chloride 110 mmol/L (98-107); Cholesterol 152 mg/dL (140-199); Estimated Glomerular Filt Rate > 60.0 mL/min (>60); Glucose 93 mg/dL (80-110); HDL Cholesterol 47 mg/dL (40-60); HEMOLYSIS < 15 (0-50); LDL Cholesterol Calculated 82 mg/dL (<100); Potassium 3.8 mmol/L (3.4-5.1); Sodium 143 mmol/L (137-145); Triglycerides 115 mg/dL (35-150)
[2019-08-22 06:36] LABS: Thyroid Stimulating Hormone 4.44 uIU/mL (0.47-4.68)
[2019-08-22] MEDS: CLOPIDOGREL 75 MG TABLET PO (10:07)
[2019-08-22] MEDS: AMLODIPINE 5 MG TABLET PO (10:07)
[2019-08-22] MEDS: ENOXAPARIN 40 MG/0.4 ML SYRINGE SUBCUT (10:07)
[2019-08-22] MEDS: ROSUVASTATIN 10 MG TABLET 20 MG PO (10:07)
[2019-08-22] MEDS: ASPIRIN EC 81 MG TABLET PO (10:08)
[2019-08-22] MEDS: carvediloL 12.5 MG TABLET 6.25 MG PO ×2 (10:08→16:19)
--- NOTE | 2019-08-22 10:30 | OT.IP.EVAL ---
Current Diagnoses Cerebral infarction, unspecified (08/21/19) Past Medical History (Last Updated 08/21/19 @ 20:52 by CATRACHO Jha) Cardiac arrest (Acute) Cardiac tamponade (Acute) CVA (cerebral vascular accident) (Acute) Essential (primary) hypertension (Acute) Glaucoma (Acute) Gout (Acute) Heart failure (Acute) History of myxoma (Acute) Malignant melanoma (Acute) Mixed hyperlipidemia (Acute) Osteopenia (Acute) Osteoporosis (Acute) Pacemaker (Acute) Sick sinus syndrome (Acute) Surgical History (Last Updated 08/21/19 @ 20:52 by CATRACHO Jha) History of appendectomy (Acute) History of bowel resection (Acute) History of cholecystectomy (Acute) History of hand surgery (Acute) History of skin graft (Acute) Status post blepharoplasty of both eyes (Acute) Occupational Therapy Inpatient Evaluation/Re-Eval M1 PT/OT-IP Prior Functional Status Start: 08/22/19 10:32 Freq: NEEDED Status: Active Protocol: Document 08/22/19 10:33 CGR (Rec: 08/22/19 10:47 CGR [email or web address]) Medical Review Prior Functional Status Communication Pt communicates verbally without difficulty. Mobility and Gait Pt was IND without AD. Activities of Daily Living and IADL's Pt was IND in all ADLs and IADLs Social History Household Members spouse Living Arrangements House Number of Floors (Floors) One Floor Number of Stairs To Enter/Railing? 1 step no railing. Home Environment High Toilet,Walk in Shower,Tub /Shower Employment Status Retired M2 OT-IP Current Condition Start: 08/22/19 10:32 Freq: Status: Active Protocol: Document 08/22/19 10:33 CGR (Rec: 08/22/19 10:47 CGR [email or web address]) Occupational Therapy Current Condition Current Condition Evaluation Date 08/22/19 Treatment Diagnosis slurring of speech Diagnosis Onset Date 08/21/19 M3 OT- IP Subjective and Pain Start: 08/22/19 10:32 Freq: Status: Active Protocol: Document 08/22/19 10:33 CGR (Rec: 08/22/19 10:47 CGR [email or web address]) OT- Subjective Occupational Therapy Visit Type Type Initial Evaluation Visit Start Time 10:15 Visit Stop Time 10:30 Total Visit Minutes 15 Notes co-treat with P.T. OT Pain Assessment Pain When Pain Assessed At Rest Pain Present Pain Present Denied Pain M4 OT- IP ADL's Start: 08/22/19 10:32 Freq: Status: Active Protocol: Document 08/22/19 10:33 CGR (Rec: 08/22/19 10:47 CGR [email or web address]) OT [id number] Comments OT Self-Feeding Comments Not meal time OT ADL-Grooming Comments OT Grooming Comments Not tested but pt presents without deficits OT ADL-Dressing General Eval Upper Body Dressing Ability Independent Lower Body Dressing Ability Independent Areas Needing Assistance Socks OT ADL-Toileting General Evaluation Toileting Ability Independent OT ADL-Bathing Comments OT Bathing Comments Not performed M5 OT- IP IADL's Start: 08/22/19 10:32 Freq: Status: Active Protocol: Document 08/22/19 10:33 CGR (Rec: 08/22/19 10:47 CGR [email or web address]) OT-Instrumental Activities of Daily Living Deficits IADL Deficits Identified No Deficits Home Safety Awareness Awareness of Need for Assistance at Home Good Awareness Ability to Problem Solve Emergency Able to Problem Solve Situations Medication Management Medication Management No Deficits Identified Money Management Money Management No Deficits Identified Meal Preparation Meal Preparation No Deficits Identified Bean Sprout Grower Bean Sprout Grower No Deficits Identified M6 OT- IP Functional Cognition Start: 08/22/19 10:32 Freq: Status: Active Protocol: Document 08/22/19 10:33 CGR (Rec: 08/22/19 10:47 CGR [email or web address]) Cognitive Factors Limiting Selfcare Function Cognitive Ability Level of Alertness Alert Patient Orientation Name,Age,Birthday,Month,Date, Year,Day of Week,Place, Situation Attention Span Ability Capable of Focused Attention, Capable of Sustained Attention Ability to Follow Commands Able to Follow Multi-Step Commands Memory Description No Deficits Noted Safety Awareness No Deficits Noted Problem Solving Ability No deficits Noted Executive Function Ability No Deficits Noted Abstract Thinking Ability No Deficits Noted OT- Vision and Hearing OT- Hearing Assessment OT- Hearing Assessment WFL OT- Vision Assessment Visual Acuity Glasses For Reading Visual Attentiveness WFL Occular Pursuits WFL Visual Convergence WFL Visual [place] Impaired Vision Assessment Comments Hx of L upper visual field cut from CVA M7 OT- IP Mobility and Balance Start: 08/22/19 10:32 Freq: Status: Active Protocol: Document 08/22/19 10:33 CGR (Rec: 08/22/19 10:47 CGR [email or web address]) OT- Bed Mobility Assessment Rolling Type of Rolling Roll to Left Level of Assistance Independent Supine to Sit Supine to Sit Assist Independent Sit to Supine Sit to Supine Assist Independent Scooting Scooting to Edge of Bed Independent OT-Transfer Assessment Sit to and From Stand Sit to and from Stand Independent Transfers Transfer Ability Independent Technique Transfer Destination Bed,Toilet Transfer Technique Stand Step Pivot Devices Transfer Assistive Devices Gait Belt OT- Gait Assessment Gait Gait Assistance Required: Independent Assistive Devices Assistive Device Gait Belt Comments Gait Ability Comments Ambulation into the enrique. OT- Balance Assessment Sitting Balance and Reactions Static Sitting Balance Ability Normal Dynamic Sitting Balance Ability Normal Standing Balance and Reactions Static Standing Balance Ability Normal Dynamic Standing Balance Ability Normal M8 OT- IP Objective Assessments Start: 08/22/19 10:32 Freq: Status: Active Protocol: Document 08/22/19 10:33 CGR (Rec: 08/22/19 10:47 CGR [email or web address]) OT Gross Range of Motion Upper Extremity Range of Motion Assessment Within Functional Limits OT Strength Upper Extremity Strength Assessment Within Functional Limits Comments Strength Comments grossly 4/5 OT- Coordination Assessment Upper Extremity Finger to Nose Test Within Functional Limits Finger Tapping Test Within Functional Limits OT-Muscle Tone Assessment Muscle Tone WNL Yes OT Sensation Assessment Comments Summary Comments no sensation deficits Edema Edema Absent M9 OT- IP Assessment and Plan Start: 08/22/19 10:32 Freq: Status: Active Protocol: Document 08/22/19 10:33 CGR (Rec: 08/22/19 10:47 CGR [email or web address]) OT Summary Assessment and Plan Potential Rehabilitation Potential Excellent Analytic Complexity at Evaluation Low Summary Progress Towards Goals Safe For Discharge,Goals Met Assessment Summary Pt presents as a low complexity evaluation and is at her baseline of IND. No further OT needs. Recommend D/ C home with family. Frequency of Treatment Frequency Of Treatment Discharge Discharge Recommendations OT Discharge Recommendations Home
--- NOTE | 2019-08-22 11:05 | PT.IIE ---
Current Diagnoses Cerebral infarction, unspecified (08/21/19) Surgical History (Last Updated 08/21/19 @ 20:52 by CATRACHO Jha) History of appendectomy (Acute) History of bowel resection (Acute) History of cholecystectomy (Acute) History of hand surgery (Acute) History of skin graft (Acute) Status post blepharoplasty of both eyes (Acute) Medical History (Last Updated 08/21/19 @ 20:52 by CATRACHO Jha) Cardiac arrest (Acute) Cardiac tamponade (Acute) CVA (cerebral vascular accident) (Acute) Essential (primary) hypertension (Acute) Glaucoma (Acute) Gout (Acute) Heart failure (Acute) History of myxoma (Acute) Malignant melanoma (Acute) Mixed hyperlipidemia (Acute) Osteopenia (Acute) Osteoporosis (Acute) Pacemaker (Acute) Sick sinus syndrome (Acute) Physical Therapy Inpatient Evaluation/Re-Eval M1 PT/OT-IP Prior Functional Status Start: 08/22/19 10:32 Freq: NEEDED Status: Active Protocol: Document 08/22/19 10:33 CGR (Rec: 08/22/19 10:47 CGR [id number]) Medical Review Prior Functional Status Communication Pt communicates verbally without difficulty. Mobility and Gait Pt was IND without AD. Activities of Daily Living and IADL's Pt was IND in all ADLs and IADLs Social History Household Members spouse Living Arrangements House Number of Floors (Floors) One Floor Number of Stairs To Enter/Railing? 1 step no railing. Home Environment High Toilet,Walk in Shower,Tub /Shower Employment Status Retired M2 PT-IP Current Condition Start: 08/22/19 10:59 Freq: NEEDED Status: Active Protocol: Document 08/22/19 10:30 [facility] (Rec: 08/22/19 11:05 [facility] [id number]) Physical Therapy Current Condition Current Condition Evaluation Date 08/22/19 Weight Bearing Status Weight Bearing Status Full Weight Bearing M3 PT-IP Subjective Start: 08/22/19 10:59 Freq: NEEDED Status: Active Protocol: Document 08/22/19 10:30 AMH (Rec: 08/22/19 11:05 [facility] [id number]) Subjective Physical Therapy Visit Type Type Initial Evaluation Visit Start Time 10:15 Visit Stop Time 10:30 Total Visit Minutes 15 Notes co treat with OT Physical Therapy Visit Comments Patient Comments pt reports she feels great and is ready to go home Therapy Pain Assessment Pain Present Pain Present Denied Pain M4 PT-IP Mobility and Gait Start: 08/22/19 10:59 Freq: NEEDED Status: Active Protocol: Document 08/22/19 10:30 AMH (Rec: 08/22/19 11:05 [facility] [id number]) PT-Bed Mobility Assessment Rolling Level of Assist Independent Supine to Sit Supine to Sit Independent Sit to Supine Sit to Supine Independent Scooting Scooting to Edge of Bed Independent PT-Transfer Assessment Sit to and From Stand Sit to and from Stand Independent Equipment Transfer Assistive Device None Orthotic/Prosthetic Devices or Brace: No Transfer Ability Level of Assist Independent Comments Mobility Comments pt IND with all mobility Gait Assessment Gait Gait Assistance Required: Independent Assistive Devices Assistive Device None Orthotic/Prosthetic Devices or Brace: No Gait Deviations General Gait Pattern Within Normal Limits Comments Gait Comments pt demonstrates good balance and safety awareness with gait PT-Balance Assessment Sitting Balance and Reactions Static Sitting Balance Ability Normal Dynamic Sitting Balance Ability Normal Standing Balance and Reactions Static Standing Balance Ability Normal Dynamic Standing Balance Ability Normal M5 PT-IP Objective Assessments Start: 08/22/19 10:59 Freq: NEEDED Status: Active Protocol: Document 08/22/19 10:30 AM[facility] (Rec: 08/22/19 11:05 [facility] [id number]) Orientation Orientation/Cognition Level of Alertness Alert Orientation Name,Date Language Function Ability No Deficits Noted Gross Range of Motion Upper Extremity ROM Assessment Within Functional Limits Lower Extremity ROM Assessment Within Functional Limits Strength Upper Extremity Strength Assessment Within Functional Limits Lower Extremity Strength Assessment Within Functional Limits Coordination Assessment Gross Coordination Gross Coordination WNL Sensation Assessment Sensation Gross Sensation WNL Muscle Tone Muscle Tone WNL Yes M7 PT-IP Assessment and Plan Start: 08/22/19 10:59 Freq: NEEDED Status: Active Protocol: Document 08/22/19 10:30 [facility] (Rec: 08/22/19 11:05 [facility] [id number]) PT Summary Assessment and Plan Potential Rehabilitation Potential Excellent Status of Condition at Evaluation Stable Summary Assessment Summary pt demonstrates hx of left visual field cut, no other physical impairments at this time are noted. Pt does not require skilled PT and will be DC Discharge Recommendations PT Discharge Recommendations Home
--- NOTE | 2019-08-22 11:25 | ST.IPIE ---
Visit Care Team Role Provider Type Henry Kaminski MD Primary Care Provider Physician Specialty: Internal Medicine Address: [address] [place] [address], [id number] Email: [email or web address] Mahoney DO Emergency Provider Physician Specialty: Emergency Medicine Address: [address] [place] [address], [id number] Email: [email or web address] Admit Provider Physician Attending Provider Specialty: Internal Medicine Address: [address] [place] [address], [id number] Email: [email or web address] [email or web address] Cerebral infarction, unspecified (08/21/19) Past Medical History (Last Updated 08/21/19 @ 20:52 by CATRACHO Jha) Cardiac arrest (Acute Medical) Related to arrhythmias per patient report Cardiac tamponade (Acute Medical) CVA (cerebral vascular accident) (Acute Medical) Residual left upper visual field cut Essential (primary) hypertension (Acute Medical) Glaucoma (Acute Medical) Low pressure glaucoma Gout (Acute Medical) Heart failure (Acute Medical) History of myxoma (Acute Medical) Malignant melanoma (Acute Medical) Mixed hyperlipidemia (Acute Medical) Osteopenia (Acute Medical) Osteoporosis (Acute Medical) Pacemaker (Acute Medical) AICD Sick sinus syndrome (Acute Medical) ST IP Initial Evaulation Report [facility] Clinical Swallow Evaluation Start: 08/22/19 10:55 Freq: Status: Active Protocol: Document 08/22/19 10:56 LARISA (Rec: 08/22/19 11:24 LARISA [id number]) Clinical Swallow Evaluation Session Time Visit Start Time 09:10 Visit Stop Time 09:25 Total Visit Minutes [address] [facility] Ref[facility] Setting Assessment Location Acute Care Visit Type Note Type Initial Evaluation Patient Information Identification Type Name,ID Card History Pt is an 83-year-old female with acute onset of dysarthria and difficulty word finding with sudden onset approximately 2:00 p.m. yesterday. Change was witnessed by her and friends and brought to the emergency room, where Head CT was performed, finding old right WATCH REPAIRER APPRENTICE distribution infarct but no evidence of acute stroke, hemorrhage, or mass. The pt has a hx of 2 prior strokes, both of which she reported occurred during medical procedures around 2000 . Her confirmed this. 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 Subjective Observations The pt was reclined in bed, awake and participating in a phone call with her , who was present throughout the evaluation. Both the pt and reported pt's speech was back to baseline. Pt denied expressive and receptive language difficulties. She also denied swallow difficulties prior to or during hospitalization and was eager for breakfast. Evaluation Liquids Trialed Thin Solids Trialed Mechanical Soft,Regular Administration Type Cup Consecutive Sips,Straw, Self-Feeding Oral Impairment WNL Oral Strategies Upright at 90 degrees Oral Phase Comments Oral Peripheral Exam: All structures were symmetrical and WNL of strength, coordination and ROM. The pt has her own dentition with one bridge at upper left molars, all in good condition for age. Soft palate elevated upon phonation. Hyolaryngeal elevation/excursion were WNL via palpation. Pt able to perform volitional swallow. Oral Phase: WNL. No anterior spillage observed or posterior spillage indicated. Pt able to masticate, form and propel bolus effectively. Swallow trigger was timely. No oral residue observed. Pharyngeal Impairment WNL Pharyngeal Strategies Sitting Upright (90 deg) Pharyngeal Phase Comments No overt s/sx of aspiration were observed with all trials. The pt maintained clear vocal quality throughout. Pt/ spouse were educated on general aspiration risks/ precautions and s/sx to be watchful of that may indicate changes in swallow function. The verbalized understanding. Findings Impressions The pt presents with swallow function and safety WNL. No modification to diet/liquids or dysphagia therapy warranted at this time. The pt and her verbalized understanding of aspiration risks and precautions, as well as s/sx of dysphagia. Diet Recommendations Liquids Order Thin Diet Order Regular Medication Recommendations As Tolerated Aspiration Precautions Recommended Precautions Upright at 90 Degrees Treatment Plan Placement Recommendations after Home Discharge Appropriate for Therapy No [facility] Follow Up Discharge from [facility] services [facility] Language Evaluation Start: 08/22/19 10:55 Freq: Status: Active Protocol: Document 08/22/19 10:56 LARISA (Rec: 08/22/19 11:24 LARISA [id number]) Language Evaluation Session Time Visit Start Time 08:45 Visit Stop Time 09:10 Total Visit Minutes 25 Past Medical History Patient History The pt was brought to ED by her d/t symptoms of dysarthria and word-finding difficulties. 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 The pt reported she has always spoken quickly, and her confirmed this. - Informal Assessment Receptive Language Normal Yes Expressive Language Normal Yes Articulation Normal Yes Cognition Normal Yes Assessment Findings Speech: The pt was 99% intelligible throughout the evaluation with occasional episodes of mildly imprecise articulation when she spoke very fast, for example when reciting the alphabet. This improved when she reduced her rate of speech. No significant dysarthric symptoms were evident. Expressive Language: Pt performed WNL in convergent and divergent naming tasks and in word-recall in both structured tasks and spontaneous conversation. She produced automatic speech accurately and provided detailed account of events depicted in [employer] picture, using complex sentences with correct syntax. She was able to provide case history and speak about her past as an OR nurse without difficulty. Receptive Language: The pt made one error when reading sentences (She 'shoved' snow yesterday for She 'shoveled' snow yesterday), which she corrected when asked to read the sentence again. All other responses were correct including answering simple and complex yes/no questions and follow 1- to 3-step directions of moderate complexity. Recommendations The pt presents with occasionally imprecise articulation when speaking rapidly, which appears to be her baseline; expressive and receptive language skills are WNL. The pt was encouraged to reduce rate of speech if enunciation becomes unclear. She verbalized understanding. Skilled intervention is not warranted at this time. The pt will be discharged from [facility] services. - Receptive Language - Expressive Language -
--- NOTE | 2019-08-22 14:45 | DI.CT.S_ITS ---
PROCEDURE: CT ANGIO HEAD AND NECK INDICATIONS: CVA TECHNIQUE: Pre-contrast 4.5 mm thick sections acquired from the foramen magnum to the vertex. After the administration of intravenous contrast, 1 mm thick sections acquired from the aortic arch through the [place] of [place]. Post-contrast 4.5 mm thick sections then re-acquired from the foramen magnum to the vertex. 3-dimensional cxdjces-jiygirmpk-fhyrorfsom (MIP) and/or volume rendering reformats were acquired of the central intracranial vasculature and neck separately. COMPARISON: [facility], CT, CT HEAD/BRAIN WO CON, 08/21/2019, 15:11. FINDINGS: Image quality: Excellent. BRAIN: CSF spaces: Ventricles are normal in size and shape. Basal cisterns are patent. No extra-axial fluid collections. Brain: No midline shift. Right temporal occipital lobe encephalomalacia, chronic. No intracranial bleeds or masses. La-white matter interface appears intact. Skull and face: Calvarium and facial bones appear intact, without suspicious lesions. Orbits appear normal. Sinuses: Sinuses and mastoids are clear. HEAD CT ANGIOGRAPHY: Anterior circulation: Intracranial internal carotid arteries are normal in size and flow. The flow within the paired anterior cerebral arteries is normal and symmetric. The flow within the middle cerebral arteries is normal and symmetric. The anterior communicating artery is seen. No aneurysms are seen. Posterior circulation: Visualized portions of the vertebral arteries demonstrate normal caliber, and join to form a normal appearing basilar artery. Unremarkable appearance of the left posterior cerebral artery. There is occlusion of the proximal right posterior cerebral artery, with minimal, diffuse diminutive reconstitution of the P2 segment. No aneurysms are seen. NECK CT ANGIOGRAPHY: Carotid system: The great vessels demonstrate a conventional anatomy as they arise from the aortic arch. The origins of the common carotid arteries appear patent. The common carotid arteries demonstrate normal caliber and courses. The bifurcation regions are both widely patent. The internal carotid arteries demonstrate normal calibers and courses. Posterior circulation: The origins of the vertebral arteries both appear widely patent. The more superior extracranial portions of both vertebral arteries also demonstrate normal courses and calibers. They join to form a normal appearing basilar artery. Soft tissues: Visualized neck soft tissues demonstrate no suspicious abnormalities. Coronary artery calcifications are present. Bones: No suspicious bony lesions. Cervical spondylosis and straightening of the normal lordotic curvature. Diffuse facet arthropathy. 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 This finding probably chronic and related to right posteromedial temporal and occipital lobe encephalomalacia. Elsewhere, no focal stenosis or occlusion. Minimal right atherosclerotic carotid calcification. No hemodynamically significant ICA stenosis. Any quantitative measurements of stenosis were performed using NASCET criteria. Dictated by: Jos Kidd M.D. on 08/22/2019 at 15:36 Approved by: Jos Kidd M.D. on 08/22/2019 at 15:55
[2019-08-22] MEDS: methylPREDNISolone 125 MG/2 ML VIAL IV (14:50)
[2019-08-22] MEDS: diphenhydrAMINE 50 MG/ML VIAL 25 MG IV (14:50)
--- NOTE | 2019-08-22 15:10 | CM.DANOTE ---
DCP Assessment: EMR reviewed: Patient is a 83 yr old female who was admitted through the ED for CVA. Patients PCP is Dr Kaminski.. CM met with patient at her bedside and explained CM role. Patient was alert and oriented at time of CM visit. Patient did take a little time word finding but was able to communicate effectively and was oriented x3. Patient lives with her who is her DPOA, Henry Burton- [phone] in a single level home in [place]. Patient is very vocal about wanting to go home. Patient had a ECHO done this morning and is waiting on a CT which is scheduled for 330pm today 08/22/2019. Patient met with [facility]. PT and OT this morning and was cleared by them to go home at d/c. Insurance: 1st: Medicare 2nd: AARP. Plan: D/C home with Henry Burton pending CT results. No Identified DCP needs noted at this time. CM department will follow closely to determine if any D/C needs arise prior to D/C home. Jeny Bah RN Discharge Planning/Care Management Advanced directive, confirm from FAMILY Start: 08/21/19 18:06 Freq: Q24H Status: Active Protocol: Document 08/21/19 18:06 AGW (Rec: 08/21/19 19:34 AGW [id number]) Advance Directive, confirm on record Time 18:00 Person contacted spouce Copy received No CM Discharge Assessment Start: 08/22/19 15:06 Freq: Status: Active Protocol: Document 08/22/19 15:08 HS (Rec: 08/22/19 15:10 HS [id number]) Discharge Planning Assessment Assigned Director Of District Office Jeny Bah RN DPOA/Assigned Designee Name Henry Burton () Contact Information [phone] Advance Directives? Yes History Provided By Patient,Family Member Has Patient been admitted in last 30 No days? Prior Living Arrangements House Household Members spouse Type of transporation used prior to Drives own vehicle admit Independent with ADL's Yes Is patient alert and oriented? Yes Caregiver for Another No Discharge Plan Home Whiteboard Updated in Patient Room with Yes name and ext. # of Director Of District Office Review Status In Process Next Review Type Continued Stay Review
[2019-08-22] MEDS: INFLUENZA VACCINE 0.5 ML SYRINGE IM (16:15)
--- NOTE | 2019-08-22 17:17 | PM.DS.1 ---
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 The patient states that from her perception she has had no difficulties however she is told by her and a friend who is an anesthesiologist that the patient had slurred speech and was unintelligible that started abruptly at approximately 2:00 p.m.. The patient has had 2 prior [place] and has a residual left upper visual field cut. She has had no associated symptoms and denies headache or nausea, no further visual changes, and no ataxia or weakness. She reports that she has been under increased stress coordinating her 's 89th birthday next week. The patient denies any recent illness or cold symptoms, no fevers or chills, nasal congestion or sore throat. She denies chest pain or palpitations, has no shortness of breath cough or wheezing. She reports no abdominal pain, heartburn, nausea vomiting. She denies changes in bowel habits and has no urinary symptoms denying urgency frequency or burning. Upon arrival in the emergency department the patient the patient was afebrile with a temperature of 97.8?, heart rate of 74, blood pressure 154/61, respirations of 20 with an oxygen saturation 99% on room air. A code stroke was initiated upon arrival to the emergency department. Stat head CT identifies age-related volume loss and mild small vessel ischemic changes, old right [employer] AFLOAT distribution infarct and no evidence of acute stroke hemorrhage or mass. In the emergency department the patient NIH score of 2. On laboratory analysis she has a normal white count with 6.2, hemoglobin of 12.4, hematocrit 37.1, platelets of 187. Her electrolytes are within normal limits she has a BUN of 20 and creatinine 0.9. She her nonfasting glucose is 90. Liver function tests are within normal limits. PT is 10.6 with a PTT of 32 and INR of 0.9. U tox is negative. A screening urinalysis was positive for WBCs and bacteria and is sent for culture. The patient is admitted to the medicine service for further evaluation of CVA. Discharge Providers Provider Date of admission: 08/21/19 16:51 Discharge Date: 08/22/19 Primary care physician: Henry Kaminski MD Consults: 08/21/19 20:27 Consult to Discharge Planning Routine Comment: Consult to Occupational Therapy Evaluate & Treat Comment: New CVA, hx CVA with visual field cut Physician Instructions: Evaluate and treat 08/21/19 20:28 Consult to Physical Therapy Evaluate & Treat Comment: New CVA, hx CVA with visual field cut Physician Instructions: Evaluate and Treat Consult to Speech Therapy Evaluate & Treat Comment: CVA, passed bedside swallow eval Physician Instructions: Evaluate and treat Discharge provider: Lisa Khan DO Summary Hospital Course Discharge Diagnosis: 1. Possible TIA versus migraine with transient global amnesia, present on admission. Resolved. 2. Hypertension, chronic, present on admission. Stable. 3. Hyperlipidemia, chronic, present on admission. Active. 4. History of sick sinus syndrome status post AICD. 5. Low pressure glaucoma, chronic, present on admission. Stable. 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 1. Possible TIA versus migraine with transient global amnesia, present on admission. Resolved. -Patient has history of 2 previous CVAs with residual left upper field visual cut. Patient's spouse and friend report sudden onset slowed response with dysarthria. Patient reports no memory of events including arrival and workup in the ED. The patient's friend reports patient was complaining of headache. Patient has a history of 2 episodes of migraine headache with transient global amnesia. -Initial NIH score 2. -Continued frequent neuro checks. -Allowed for permissive hypertension. Blood pressure remained mildly elevated with SBP 140-150's with goal SBP <150 mmHg based on age. May want to consider increasing amlodipine if patient were more significantly elevated with SBP in the 160's or higher and will defer to her PCP to continue to monitor. -CT brain without contrast demonstrated no evidence of acute CVA, hemorrhage or mass with age-related line loss and mild small vessel ischemic changes and old right [employer] AFLOAT distribution infarct. -CTA head and neck demonstrated occlusion of the proximal right posterior cerebral artery with minimal reconstitution of the P2 segment. This finding probably chronic and related to right posteromedial temporal and occipital lobe encephalomalacia. Elsewhere, no focal stenosis or occlusion. Minimal right atherosclerotic carotid calcification. No hemodynamically significant ICA stenosis. -EKG demonstrated sinus rhythm with ventricular pacing, no ectopy, no ST or T-wave abnormalities. -Cardiac telemetry demonstrated 100% V-pacing with occasional A-pacing with underlying rhythm sinus without ectopy or evidence of atrial fibrillation. -Continued aspirin 81 mg daily and clopidogrel 75 mg daily. Patient has indication for anticoagulation and would not contribute any added benefit as she has no predisposition for thromboembolism such as atrial fibrillation or active cancer. -Echocardiogram did not demonstrate any obvious source for cardiac embolic TIA/CVA. -Ordered physical, occupational and speech therapy evaluation and treatment. No further recommendations and return home with no needs. 2. Hypertension, chronic, present on admission. Stable. -Initial blood pressure was mildly elevated on arrival to ED at 154/61. -Continued amlodipine 5 mg daily and carvedilol 6.25 mg twice daily. Allowed for permissive hypertension. Blood pressure remained mildly elevated with SBP 140-150's with goal SBP <150 mmHg based on age. May want to consider increasing amlodipine if patient were more significantly elevated with SBP in the 160's or higher and will defer to her PCP to continue to monitor. 3. Hyperlipidemia, chronic, present on admission. Active. -Patient with history of hyperlipidemia and previous CVAs x2 on rosuvastatin 10 mg daily. -Fasting lipid panel demonstrated moderate lipid control with total cholesterol 152, triglycerides 115, HDL 47, and LDL mildly elevated at 82 (goal LDL < 70 in a patient with previous CVA or RI). -Increased rosuvastatin from 10 mg to 20 mg daily at bedtime to better control LDL. 4. History of sick sinus syndrome status post AICD. -No chest pain or palpitations. -EKG demonstrated sinus rhythm with ventricular pacing, no ectopy, no ST or T-wave abnormalities. -Cardiac telemetry demonstrated 100% V-pacing with occasional A-pacing with underlying rhythm sinus without ectopy or evidence of atrial fibrillation. 5. Low pressure glaucoma, chronic, present on admission. Stable. -Patient is followed by Ophthalmology with recent checkup without visual changes and persistent left upper field cut as sequelae/residual deficit of previous CVAs. -Continue patient's eyedrops of dorzolamide 1 drop each eye twice daily and travoprost 1 drop in both eyes once daily. Exam Vital Signs (past 8 hours): - 08/22/19 10:00 08/22/19 12:00 08/22/19 15:00 Temperature 98.1 F Pulse Rate 64 Respiratory Rate 16 Blood Pressure 140/72 Pulse Oximetry 96 96 97 08/22/19 15:44 08/22/19 16:19 Temperature 97.7 F Pulse Rate 69 69 Respiratory Rate 18 Blood Pressure 154/70 H 154/70 H Pulse Oximetry 98 Oxygen Delivery Method Room Air Oxygen Flow Rate 0 Narrative Exam Narrative: General: Elderly female sitting in bed and in no acute distress, well-developed, well-nourished, appropriately interactive. HEENT: Normocephalic, atraumatic. External ears without defect. Pupils equal, round, and reactive to light. Anicteric sclerae, moist conjunctivae, and no lid lag. Oropharynx free of erythema and cobble stoning with moist mucosa. Neck: Supple with full range of motion. No jugular venous distension. No bruits. No lymphadenopathy or thyromegaly. Cardiovascular: Regular rate and rhythm without murmurs, rubs, or gallops appreciated Pulmonary: Clear to auscultation bilaterally without crackles, wheezes, or rhonchi. Normal respiratory effort with no use of accessory muscles. Abdomen: Soft, bowel sounds present, nontender, nondistended. No hepatosplenomegaly or masses appreciated. Extremities: No clubbing, cyanosis, or edema. Skin: Normal temperature, turgor, and texture; no rash, ulcers, or subcutaneous nodules appreciated. Neurological: Cranial nerves grossly intact. Left upper field visual cut, mild dysarthria with stuttering and mildly impaired enunciation. No facial droop. Normal muscle strength, tone, and bulk. Reflexes, coordination, and sensory function within normal limits. No known gait impairment. Psychiatric: Normal mood and affect. Alert and oriented to person, place, and time. Mild cognitive impairment with short-term memory recall deficit. Objective Labs Result Diagrams: 08/22/19 05:10 08/22/19 05:10 Labs: Laboratory Results - last 24 hr 08/21/19 08/22/1919 15:30 05:10 05:10 WBC 6.3 RBC 3.98 L Hgb 12.1 Hct 35.6 L MCV 89.5 MCH 30.4 MCHC 33.9 RDW 12.9 Plt Count 169 Neut % (Auto) 51.3 Lymph % (Auto) 36.7 [place] % (Auto) 7.2 Eos % (Auto) 3.6 Baso % (Auto) 1.2 Neut # (Auto) 3200 Lymph # (Auto) 2300 [place] # (Auto) 500 Eos # (Auto) 200 Baso # (Auto) 100 Sodium 143 Potassium 3.8 Chloride 110 H Carbon Dioxide 27 BUN 14 Creatinine 0.70 Estimated GFR > 60.0 BUN/Creatinine Ratio 20.0 Glucose 93 Calcium 9.0 Magnesium 2.0 Triglycerides 115 Cholesterol 152 LDL Cholesterol, Calc 82 HDL Cholesterol 47 TSH 08/22/19 05:10 WBC RBC Hgb Hct MCV MCH MCHC RDW Plt Count Neut % (Auto) Lymph % (Auto) [place] % (Auto) Eos % (Auto) Baso % (Auto) Neut # (Auto) Lymph # (Auto) [place] # (Auto) Eos # (Auto) Baso # (Auto) Sodium Potassium Chloride Carbon Dioxide BUN Creatinine Estimated GFR BUN/Creatinine Ratio Glucose Calcium Magnesium Triglycerides Cholesterol LDL Cholesterol, Calc HDL Cholesterol TSH 4.44 Discharge Plan Discharge Plan Patient Disposition: Home Discharge comment: You're being discharged home. You did not have a stroke. You may have had a TIA or a migraine that led to stroke-like symptoms and global amnesia it is unclear. Your echocardiogram did not demonstrate any abnormalities to suggest embolic stroke. Your EKG and cardiac monitoring demonstrated 100% V pacing and did not demonstrate any abnormal underlying rhythm such as atrial fibrillation which would put you at risk of blood clots. Your CT scans did not demonstrate any significant bleeding, blood clots, or blockage of your arteries in your head or neck other than the area previously injured during your previous stroke (P2 segment of your [employer]ER AFLOAT). Continue aspirin and Plavix as previously prescribed to prevent stroke. Your rosuvastatin has been increased from 10 mg to 20 mg daily to help better control your LDL (Your LDL is 84 and goal LDL < 70 for history of previous stroke) and prevent stroke. Please follow-up with your primary care provider, Dr. Kaminski, at your scheduled appointment next [place] to discuss your hospitalization. Discharge Med Rec/Prescriptions Prescriptions: Continued carvedilol 12.5 mg Tablet 6.25 mg PO BID RF: 0 amlodipine 5 mg Tablet 5 mg PO DAILY RF: 0 aspirin [Adult Low Dose Aspirin] 81 mg Tablet,Delayed Release (Dr/Ec) 81 mg PO DAILY RF: 0 zoledronic [id number] [Reclast] 5 mg/100 mL Piggyback See Rx Instructions .ROUTE .COMPLEX RF: 0 prednisone 10 mg Tablet 10 mg PO SEEINSTR RF: 0 Travatan Z 0.004 % Drops 1 drp EYE-BOTH DAILY RF: 0 clopidogrel [Plavix] 75 mg Tablet 75 mg PO DAILY RF: 0 zolpidem 5 mg Tablet 5 mg PO BEDTIME PRN (Reason: sleep) RF: 0 dorzolamide 2 % Drops 1 drp EYE-BOTH BID RF: 0 cholecalciferol (vitamin D3) [Vitamin D3] 1,000 unit Capsule 1,000 unit PO DAILY RF: 0 Changed rosuvastatin 10 mg Tablet 20 mg PO DAILY Qty: 60 RF: 0 Follow up/Referrals: Henry Kaminski MD [Primary Care Provider] - 08/30/19 Provider Discharge Instructions Diet: Low-fat, Low-sodium and Low-cholesterol Activity: Activity as tolerated Visit Report/Discharge Packet Instructions: Progress in Stroke Prevention, DI for Transient Ischemic Attack, Multiple Servings of Fish Each Week Associated With Lower Risk of Stroke, Mediterranean Diet May Reduce the Risk of Stroke in People with High Risk o Discharge Data Primary Care Provider: Henry Kaminski V Attending Provider: Lisa Khan Admadriana Date/Time: 08/21/19 16:51
--- NOTE | 2019-08-22 18:38 | PC.NURSE ---
Discharge Note- patient discharged home. Discharge paperwork and education reviewed with patient and signed. IV lines removed and bandaids applied. Patient left via wheelchair with all personal belongings to private car, at side.
--- NOTE | 2019-09-14 11:28 | PC.NURSE ---
Late entry: NS stopped 08/22 1820
== END 2019-08-22 18:30 | disposition home or self-care (01) ==
LOC: ED 16:46 → AC 16:51
PROVIDERS: Nurse Practitioner Adult Health; Admitting Provider Internal Medicine; Emergency Provider Emergency Medicine; PCP Internal Medicine; Visit Provider Internal Medicine
DX: R29.818 Other symptoms and signs involving the nervous system (principal); R47.81 Slurred speech; I69.398 Other sequelae of cerebral infarction; H53.459 Other localized visual field defect, unspecified eye; Z95.810 Presence of automatic (implantable) cardiac defibrillator; I49.5 Sick sinus syndrome; Z23 Encounter for immunization; E78.5 Hyperlipidemia, unspecified; I10 Essential (primary) hypertension; H40.89 Other specified glaucoma
CPT/HCPCS: 36415; 70450; 70496; 70498; 80048; 80053; 80061; 80305; 81003; 81015; 82962; 83735; 84443; 84484; 85025; 85610; 85730; 87086; 90471; 90656; 92523; 92610; 93005; 93306; 94762; 96361; 96372; 96374; 96375; 97161; 97165; 99283; 99285; G0378; J1200; J1650; J2930; Q2038; Q9967

== ENCOUNTER → 2020-03-08 11:59 | Outpatient (CLI) | payer MEDICARE, SELFPAY ==
[2019-08-21 17:59] VITALS: BMI 26.9
[2020-03-08 13:21] LABS: HEMOLYSIS < 15 (0-50); Potassium 4.2 mmol/L (3.4-5.1)
== END ==
PROVIDERS: PCP Internal Medicine; Referring Provider Internal Medicine; Visit Provider Internal Medicine
DX: Z01.818 Encounter for other preprocedural examination (principal)
CPT/HCPCS: 36415; 84132

== ENCOUNTER → 2020-11-06 16:14 | Outpatient (CLI) | payer MEDICARE, SELFPAY ==
[2019-08-21 17:59] VITALS: BMI 26.9
[2020-11-06] MEDS: COVID-19 VACC #1, MRNA(MOD) 100 MCG/0.5 ML VIAL IM (16:26)
== END ==
PROVIDERS: PCP Internal Medicine; Visit Provider Internal Medicine
DX: Z23 Encounter for immunization (principal)
CPT/HCPCS: 0011A; 91301

== ENCOUNTER → 2020-12-05 10:53 | Outpatient (CLI) | payer MEDICARE, SELFPAY ==
[2019-08-21 17:59] VITALS: BMI 26.9
[2020-12-05] MEDS: COVID-19 VACC #2, MRNA(MOD) 100 MCG/0.5 ML VIAL IM (11:01)
== END ==
PROVIDERS: PCP Internal Medicine; Visit Provider Internal Medicine
DX: Z23 Encounter for immunization (principal)
CPT/HCPCS: 0012A; 91301

== ENCOUNTER → 2021-02-04 18:28 | Outpatient (ROUT) | payer MEDICARE, SELFPAY ==
[2019-08-21 17:59] VITALS: BMI 26.9
[2021-02-04 19:40] LABS: Add Manual Diff / Slide Review NO; Basophils Absolute Auto 100 /uL (0-100); Basophils Percent Auto 1.1 % (0-2); Eosinophils Absolute Auto 300 /uL (0-450); Eosinophils Percent Auto 6.3 % (2-4); Hematocrit 37.9 % (36-46); Hemoglobin 12.6 g/dL (12.0-16.0); Lymphocytes Absolute Auto 1700 /uL (1100-4500); Lymphocytes Percent Auto 32.1 % (25-40); Mean Corpuscular HGB Conc 33.3 % (30-36); Mean Corpuscular Hemoglobin 30.2 PG (26-34); Mean Corpuscular Volume 90.9 fL (80-100); Monocytes Absolute Auto 400 /uL (0-900); Monocytes Percent Auto 8.3 % (3-14); Neutrophils Absolute Auto 2800 /uL (1500-7000); Neutrophils Percent Auto 52.2 % (50-75); Platelet Count 184 X10^3/uL (150-400); Red Blood Cell Count 4.17 X10^6/uL (4.0-5.2); Red Cell Distribution Width 13.1 % (11.6-14.8); White Blood Cell Count 5.4 X10^3/uL (4.5-11.0)
[2021-02-04 19:48] LABS: Alanine Aminotransferase 16 IU/L (<35); Albumin 4.1 g/dL (3.5-5.0); Albumin Globulin Ratio 1.5 (1.0-2.8); Alkaline Phosphatase 65 U/L (38-126); Aspartate Aminotransferase 26 IU/L (14-36); BUN Creatinine Ratio 24.7 (6-22); Bilirubin Total 0.2 mg/dL (0.2-1.3); Blood Urea Nitrogen 18 mg/dL (7-17); Calcium 10.1 mg/dL (8.4-10.2); Carbon Dioxide 28 mmol/L (22-32); Chloride 107 mmol/L (98-107); Cholesterol 161 mg/dL (140-199); Estimated Glomerular Filt Rate > 60.0 mL/min (>60); Globulin 2.7 g/dL (1.7-4.1); Glucose 104 mg/dL (80-110); HDL Cholesterol 64 mg/dL (40-60); HEMOLYSIS < 15 (0-50); LDL Cholesterol Calculated 62 mg/dL (<100); Potassium 3.2 mmol/L (3.4-5.1); Sodium 143 mmol/L (137-145); Total Protein 6.8 g/dL (6.3-8.2); Triglycerides 174 mg/dL (35-150); Uric Acid 6.4 mg/dL (2.5-6.2)
[2021-02-04 20:20] LABS: TSH w/ Reflex to FT4 1.03 uIU/mL (0.47-4.68)
== END ==
PROVIDERS: PCP Internal Medicine; Visit Provider Internal Medicine
DX: M10.9 Gout, unspecified (principal); I50.22 Chronic systolic (congestive) heart failure; E78.2 Mixed hyperlipidemia
CPT/HCPCS: 80053; 80061; 84443; 84550; 85025

== ENCOUNTER → 2021-05-27 09:03 | Outpatient (CLI) | payer MEDICARE, SELFPAY ==
[2019-08-21 17:59] VITALS: BMI 26.9
--- NOTE | 2021-05-27 | DI.RAD.S_ITS ---
PROCEDURE: XR CHEST 2V INDICATIONS: LEFT NECK MASS TECHNIQUE: 2 views of the chest were acquired. COMPARISON: Located Within [facility], , CHEST 1 VIEW, 06/22/2014, 21:35. FINDINGS: Surgical changes and devices: Left chest wall AICD is stable. Cholecystectomy clips are stable. Lungs and pleura: Lungs are clear. No pleural effusions or pneumothorax. Mediastinum: Mediastinal contours are normal. Heart size is normal. Bones and chest wall: No suspicious bony abnormalities. Soft tissues appear unremarkable. IMPRESSION: No acute cardiopulmonary disease process. Dictated by: Daisy Reynolds MD, PhD on 05/27/2021 at 9:28 Approved by: Daisy Reynolds MD, PhD on 05/27/2021 at 9:29
== END ==
PROVIDERS: PCP Internal Medicine; Referring Provider Internal Medicine; Visit Provider Internal Medicine
DX: Z95.810 Presence of automatic (implantable) cardiac defibrillator (principal); D17.0 Benign lipomatous neoplasm of skin and subcutaneous tissue of head, face and neck
CPT/HCPCS: 71046

== ENCOUNTER 2021-07-08 09:38 | Emergency (ER) | payer MEDICARE, SELFPAY ==
[2019-08-21 17:59] VITALS: BMI 26.9
[2021-07-08 09:40] VITALS: BP 181/81; PULSE 84; RESP 18; TEMP 36.6; O2SAT 96
[2021-07-08 09:47] VITALS: O2SAT 97
[2021-07-08 09:48] VITALS: BP 181/81; PULSE 83; O2SAT 96
--- NOTE | 2021-07-08 09:49 | DI.CT.S_ITS ---
PROCEDURE: CT FACIAL BONES WO CON INDICATIONS: fall with facial injury TECHNIQUE: Noncontrast 2.5 mm thick axial images acquired from the mandible through the frontal sinuses, with coronal and sagittal reformatting. For radiation dose reduction, the following was used: automated exposure control, adjustment of mA and/or kV according to patient size. COMPARISON: None. FINDINGS: Image quality: Excellent. Bones and teeth: Orbital carvalho are intact. Sinus carvalho show no fracture or deformity. Nasal bones and septum are intact. Visualized portions of the mandible demonstrate no fractures or subluxation. Zygomatic arches are intact. Pterygoid plates are intact. Visualized portions of the skull base and auditory canals are intact. Soft tissues: No edema, masses, or fluid collections. No enlarged lymph nodes. No soft tissue lacerations or debris. Vascular: Visualized vascular structures appear normal in the absence of contrast. Bony vascular foramina and canals are intact. IMPRESSION: No acute finding. Dictated by: Román Rey M.D. on 07/08/2021 at 10:25 Approved by: Román Rey M.D. on 07/08/2021 at 10:26
--- NOTE | 2021-07-08 09:49 | DI.RAD.S_ITS ---
PROCEDURE: XR WRIST LT MIN 3V INDICATIONS: fall with injury TECHNIQUE: 4 views of the wrist were acquired. COMPARISON: None. FINDINGS: Bones: Small calcification is noted adjacent to the distal radial head. Scaphoid view: Ill-defined nondisplaced lucency is noted overlying the superior pole of the scaphoid. Soft tissues: No suspicious soft tissue calcifications. IMPRESSION: 1. Small calcification adjacent to the radial head. This could be related to avulsion injury or potentially old trauma/degenerative change. 2. Ill-defined nondisplaced lucency overlying the superior scaphoid. This could represent a focal area of bone demineralization. However, given history of trauma, recommend correlation point tenderness in short interval imaging follow-up as fracture cannot be definitively excluded. Dictated by: Chanel Mckeon M.D. on 07/08/2021 at 10:38 Approved by: Chaenl Mckeon M.D. on 07/08/2021 at 10:39
--- NOTE | 2021-07-08 09:50 | DI.CT.S_ITS ---
PROCEDURE: CT HEAD/BRAIN WO CON INDICATIONS: fall with injury, on blood thinner TECHNIQUE: Noncontrast 4.5 mm thick angled axial sections acquired from the foramen magnum to the vertex, with coronal and sagittal reformats. For radiation dose reduction, the following was used: automated exposure control, adjustment of mA and/or kV according to patient size. COMPARISON: [facility], CT, CT HEAD/BRAIN WO CON, 08/21/2019, 15:11. FINDINGS: Image quality: Excellent. CSF spaces: Basal cisterns are patent. No extra-axial fluid collections. The ventricles are symmetric in size and shape. Brain: Encephalomalacia and gliosis in the right occipital lobe as seen on prior study. Mild chronic microvascular ischemic changes. No acute intracranial hemorrhage. Skull and face: Calvarium and visualized facial bones appear intact, without suspicious lesions. Sinuses: Visualized sinuses and mastoids are clear. IMPRESSION: No acute intracranial abnormality. Dictated by: Román Rey M.D. on 07/08/2021 at 10:22 Approved by: Román Rey M.D. on 07/08/2021 at 10:23
--- NOTE | 2021-07-08 09:55 | ED_ITS ---
HPI - Fall General Chief Complaint: Trauma Stated Complaint: Fell and hurt nose/lip and wrist. on blood thinner Time Seen by Provider: 07/08/21 09:44 Source: patient and family Mode of arrival: Wheelchair History of Present Illness HPI Narrative: 85F Nonsmoker with history of pacemaker (on Plavix), stroke, hypertension presents with her and a chief complaint of a ground level fall this morning with injuries. She states she was in her normal state of health and nearing the end of her 5 mi walk when she was becoming bit tired and she tripped on her own feet and fell forward, injuring her left wrist and striking her face on the ground. She denies any prodromal symptoms such as dizziness, lightheadedness or extremity fatigue. She denies any loss of consciousness and has full recall of the event. She denies any vomiting, d izziness and states she is acting at baseline. She denies any neck or back pain. Additionally she landed on her left wrist and has pain with range of motion. She denies any numbness or tingling. She denies any elbow or shoulder pain. She is able to breathe through both nostrils but states it bled significantly after she fell. Related Data Home Medications Medication Instructions Recorded Confirmed amlodipine 5 mg tablet 5 mg PO DAILY 08/21/19 08/21/19 aspirin 81 mg tablet,delayed 81 mg PO DAILY 08/21/19 08/21/19 release (Adult Low Dose Aspirin) carvedilol 12.5 mg tablet 6.25 mg PO BID 08/21/19 08/21/19 cholecalciferol (vitamin D3) 25 1,000 unit PO DAILY 08/21/19 08/21/19 mcg (1,000 unit) capsule (Vitamin D3) clopidogrel 75 mg tablet (Plavix) 75 mg PO DAILY 08/21/19 08/21/19 dorzolamide 2 % eye drops 1 drp EYE-BOTH BID 08/21/19 08/21/19 prednisone 10 mg tablet 10 mg PO SEEINSTR 08/21/19 08/21/19 travoprost 0.004 % eye drops 1 drp EYE-BOTH DAILY 08/21/19 08/21/19 (Travatan Z) zoledronic acid 5 mg/100 mL in See Rx Instructions .ROUTE .COMPLEX 08/21/19 08/21/19 mannitol 5 %-water intravenous piggybck (Reclast) zolpidem 5 mg tablet 5 mg PO BEDTIME PRN 08/21/19 08/21/19 Previous Rx's Medication Instructions Recorded rosuvastatin 10 mg tablet 20 mg PO DAILY #60 tab 08/22/19 Allergies Allergy/AdvReac Type Severity Reaction Status Date / Time iodine Allergy Hives Verified 07/08/21 09:53 paroxetine AdvReac Drowsy Verified 07/08/21 09:53 Review of Systems Review of Systems Narrative: GENERAL: Denies chills, fatigue, malaise, fever, sweats. HEENT: See HPI RESPIRATORY: Denies dyspnea, cough, wheezing, hemoptysis, sputum. CARDIOVASCULAR: Denies chest pain, palpitations, orthopnea, edema, GASTROINTESTINAL: Denies nausea, vomiting, abdominal pain, diarrhea, constipation, melena. : Denies dysuria, frequency, incontinence, hematuria, urinary retention. MUSCULOSKELETAL: See HPI SKIN: Denies rash, skin lesions, or other NEUROLOGIC: Denies weakness, headache, numbness, change in speech, confusion, seizures, incoordination. PSYCHIATRIC: No concerning psychosocial issues. 12 point review of systems is negative except for those stated above Patient History Medical History Cardiac arrest Cardiac tamponade CVA (cerebral vascular accident) Essential (primary) hypertension Glaucoma Gout Heart failure History of myxoma Malignant melanoma Mixed hyperlipidemia Osteopenia Osteoporosis Pacemaker Sick sinus syndrome Surgical History History of appendectomy History of bowel resection History of cholecystectomy History of hand surgery History of skin graft Status post blepharoplasty of both eyes Family History Father Myocardial infarction Smoker Mother Endocrine disorder Brother Mesothelioma Son No problems noted. Social History household members: spouse Smoking Status: Never smoker alcohol intake: never Smoking Status: Never smoker alcohol intake frequency: 0-2 drinks per day Substance Use Type: does not use Exam Narrative Exam Narrative: GENERAL: [85] year old patient appears stated age. Well- developed patient, in mild distress. GCS 15 HEAD: No scalp contusions, hematomas or evidence of depressed skull fracture EYES: Pupils equal round and reactive. No hyphema. Extraocular motions intact. No scleral icterus. No injection or drainage. ENT: Swelling over bridge of nose, evidence of fresh clots in bilateral nares, no active bleeding, no nasal septal hematoma. Throat without erythema, tonsillar hypertrophy or exudate. Airway patent. No hemotympanum NECK: Trachea midline. Non tender, full range of motion, no step-offs or crepitance. CARDIOVASCULAR: Regular rate and rhythm without murmurs, gallops, or rubs. RESPIRATORY: Clear to auscultation. Breath sounds equal bilaterally. No wheezes, rales, or rhonchi. GASTROINTESTINAL: Abdomen soft, non-tender, nondistended. EXTREMITIES: Decreased range of motion of left wrist secondary to pain, no obvious deformity, closed, neurovascularly intact. BACK: Nontender without deformity or crepitance. No flank tenderness. NEURO: AOx3. SKIN: No rash or erythema of visible areas Initial Vital Signs Initial Vital Signs: Vital Signs Temperature 97.9 F 07/08/21 09:40 Pulse Rate 84 07/08/21 09:40 Respiratory Rate 18 07/08/21 09:40 Blood Pressure 181/81 H 07/08/21 09:40 Pulse Oximetry 96 07/08/21 09:40 Procedures Orthopedic Splinting/Casting Injury #1: Side: left Upper Extremity Injury Location: wrist Upper Extremity Immobilizer: volar splint Post splinting neuro exam: intact Post splinting vascular exam: intact Placed by: Nursing Course Orders Ordered: ED Orders 07/08/21 09:49 CT facial bones wo con Stat XR wrist LT min 3V Stat 07/08/21 09:50 CT head/brain wo con Stat 07/08/21 09:51 EKG-12 Lead Stat 07/08/21 09:52 Complete Blood Count AUTO DIFF Stat Comprehensive Metabolic Panel Stat Troponin & CK Cardiac Panel Stat 07/08/21 10:23 Urinalysis and Microscopic Stat Discontinued Medications Sodium Chloride (Normal Saline 0.9%) 1,000 mls @ 125 mls/hr IV CONT ALMA ROSA Last Admin: 07/08/21 10:23 Dose: Not Given Documented by: CSIEDLE Vital Signs Vital signs: Vital Signs - 8 hr 07/08/21 09:40 07/08/21 09:47 07/08/21 09:48 Temperature 97.9 F Pulse Rate 84 83 Respiratory Rate 18 Blood Pressure 181/81 H 181/81 H Pulse Oximetry 96 97 96 07/08/21 10:00 Temperature Pulse Rate 79 Respiratory Rate Blood Pressure Pulse Oximetry 96 - Fall Lab Data Result diagrams: 07/08/21 09:52 07/08/21 09:52 Labs: Lab Results 07/08/21 07/08/21 Range/Units 09:52 09:52 WBC 5.5 (4.5-11.0) X10^3/uL RBC 4.28 (4.0-5.2) X10^6/uL Hgb 12.9 (12.0-16.0) g/dL Hct 38.4 (36-46) % MCV 89.9 (80-100) fL MCH 30.2 (26-34) PG MCHC 33.6 (30-36) % RDW 13.1 (11.6-14.8) % Plt Count 187 (150-400) X10^3/uL Neut % (Auto) 55.4 (50-75) % Lymph % (Auto) 29.7 (25-40) % [place] % (Auto) 7.3 (3-14) % Eos % (Auto) 5.6 H (2-4) % Baso % (Auto) 2.0 (0-2) % Neut # (Auto) 3000 (8055-6528) /uL Lymph # (Auto) 1600 (2998-0012) /uL [place] # (Auto) 400 (0-900) /uL Eos # (Auto) 300 (0-450) /uL Baso # (Auto) 100 (0-100) /uL Sodium 143 (137-145) mmol/L Potassium 3.5 (3.4-5.1) mmol/L Chloride 110 H (98-107) mmol/L Carbon Dioxide 29 (22-32) mmol/L BUN 16 (7-17) mg/dL Creatinine 0.74 (0.52-1.04) mg/dL Estimated GFR > 60.0 (>60) mL/min BUN/Creatinine Ratio 21.6 (6-22) Glucose 100 (80-110) mg/dL Calcium 9.4 (8.4-10.2) mg/dL Total Bilirubin 0.4 (0.2-1.3) mg/dL AST 24 (14-36) IU/L ALT 15 (<35) IU/L Alkaline Phosphatase 61 (38-126) U/L Total Creatine Kinase 68 (30-135) U/L CK-MB (CK-2) TNP CK-MB (CK-2) Rel Index TNP Troponin I < 0.012 (0.01-0.034) ng/mL Total Protein 7.0 (6.3-8.2) g/dL Albumin 4.2 (3.5-5.0) g/dL Globulin 2.8 (1.7-4.1) g/dL Albumin/Globulin Ratio 1.5 (1.0-2.8) Imaging Data CT scan - head: Radiologist's Impression: [address] [address] [address] Scan Report Signed Patient: Claudia Burton MR#: [id number] : 1935 Acct:[id number] Age/Sex: 85 / F Date of Service: 07/08/21 Loc: ED Accession Number: [id number] ?? Procedure: CT head/brain wo con Ordering Provider: Dickson Foote D.O. PROCEDURE:? CT HEAD/BRAIN WO CON ? INDICATIONS:? fall with injury, on blood thinner ? TECHNIQUE:? Noncontrast 4.5 mm thick angled axial sections acquired from the foramen magnum to the vertex, with coronal and sagittal reformats.? For radiation dose reduction, the following was used:? automated exposure control, adjustment of mA and/or kV according to patient size.? ? COMPARISON:? [facility], CT, CT HEAD/BRAIN WO CON, 08/21/2019, 15:11. ? FINDINGS:? Image quality:? Excellent.? ? CSF spaces:? Basal cisterns are patent.? No extra-axial fluid collections.? The ventricles are symmetric in size and shape.? ? Brain:? Encephalomalacia and gliosis in the right occipital lobe as seen on prior study.? Mild chronic microvascular ischemic changes.? No acute intracranial hemorrhage. ? Skull and face:? Calvarium and visualized facial bones appear intact, without suspicious lesions.? ? Sinuses:? Visualized sinuses and mastoids are clear.? ? IMPRESSION:? No acute intracranial abnormality.? ? ? Dictated by: Román Rey M.D. on 07/08/2021 at 10:22 ? ? Approved by: Román Rey M.D. on 07/08/2021 at 10:23? CT Facial Bones: Radiologist's Impression: Claudia Burton??85??F??1935 ? Allergy/Adv: iodine, paroxetine Close Head CT (Signed) Román Rey - 07/08/21 Wrist X-Ray 07/08/[address] (Signed) Román Rey - 07/08/21 Chest X-Ray (Signed) Daisy Reynolds - 05/27/21 Head/Neck CTA (Signed) Jos Kidd - 08/22/19 Telemetry Strips 08/21/19 Telemetry Strips 08/21/[address] (Signed) Zain Sood - 08/21/19 Echocardiogram Ultrasound (Signed) Jack Alvarez - 08/21/19 Pelvis X-Ray (Signed) Darrel Ferris - 06/06/19 Lumbar Spine X-Ray (Signed) Darrel Ferris - 06/06/19 Mammogram Screening (Signed) Angelo Up - 03/19/19 [place] [address] CT Scan Report Signed Patient: Claudia Burton MR#: [id number] : 1935 Acct:[id number] Age/Sex: 85 / F Date of Service: 07/08/21 Loc: ED Accession Number: [id number] ?? Procedure: CT facial bones wo con Ordering Provider: Dickson Foote D.O. PROCEDURE:? CT FACIAL BONES WO CON ? INDICATIONS:? fall with facial injury ? TECHNIQUE:? Noncontrast 2.5 mm thick axial images acquired from the mandible through the fro ntal sinuses, with coronal and sagittal reformatting.? For radiation dose reduction, the following was used:? automated exposure control, adjustment of mA and/or kV according to patient size.? ? COMPARISON:? None. ? FINDINGS:? Image quality:? Excellent.? ? Bones and teeth:? Orbital carvalho are intact.? Sinus carvalho show no fracture or deformity.? Nasal bones and septum are intact.? Visualized portions of the mandible demonstrate no fractures or subluxation.? Zygomatic arches are intact.? Pterygoid plates are intact.? Visualized portions of the skull base and auditory canals are intact.? ? Soft tissues:? No edema, masses, or fluid collections.? No enlarged lymph nodes.? No soft tissue lacerations or debris.? ? Vascular:? Visualized vascular structures appear normal in the absence of contrast.? Bony vascular foramina and canals are intact.? ? IMPRESSION:? No acute finding.? ? ? Dictated by: Román Rey M.D. on 07/08/2021 at 10:25 ? ? Approved by: Román Rey M.D. on 07/08/2021 at 10:26 ? ECG Data Interpretation: Paced rhythm, rate 75, no ectopy. No ST segmental elevation or depression. No T-wave inversions. Discharge Plan Departure Patient Disposition: Home Clinical Impression: Contusion of nose, Left wrist sprain Instructions: DI for Trauma, DI for Contusion Activity Restrictions/Additional Instructions: *You have been diagnosed with [fall with nasal contusion, bloody nose and wrist contusion. Xray and CT scans are all very reassuring. *What to do: *Please continue to take your regular medications as directed. [ ] New medication prescriptions sent to your pharmacy: [ ] [ ] New medication written as a paper prescription [ ] No new medications given *Please follow up with your primary care provider in 2-3 days, call for an appointment. Let them know you were seen in the Emergency Department and that we ask that you be seen in follow up. We will electronically transmit a record of today's note if your PCP is in our system *If you do not have a primary care provider please contact the [facility] Resource line at [phone]. They will ask some questions about your medical history and help get you set up with a doctor in the community. *Return to Emergency Department if you should have any new, worsening or concerning symptoms, such as [fever greater than 101 F, shaking chills, worsening pain, persistent vomiting or other bothersome symptoms] Prescriptions: No Action carvedilol 12.5 mg Tablet 6.25 mg PO BID RF: 0 amlodipine 5 mg Tablet 5 mg PO DAILY RF: 0 aspirin [Adult Low Dose Aspirin] 81 mg Tablet,Delayed Release (Dr/Ec) 81 mg PO DAILY RF: 0 zoledronic [id number] [Reclast] 5 mg/100 mL Piggyback See Rx Instructions .ROUTE .COMPLEX RF: 0 prednisone 10 mg Tablet 10 mg PO SEEINSTR RF: 0 Travatan Z 0.004 % Drops 1 drp EYE-BOTH DAILY RF: 0 clopidogrel [Plavix] 75 mg Tablet 75 mg PO DAILY RF: 0 zolpidem 5 mg Tablet 5 mg PO BEDTIME PRN (Reason: sleep) RF: 0 dorzolamide 2 % Drops 1 drp EYE-BOTH BID RF: 0 cholecalciferol (vitamin D3) [Vitamin D3] 1,000 unit Capsule 1,000 unit PO DAILY RF: 0 rosuvastatin 10 mg Tablet 20 mg PO DAILY Qty: 60 RF: 0 Referrals: Henry Kaminski MD [Primary Care Provider] -
[2021-07-08 10:00] VITALS: PULSE 79; O2SAT 96
[2021-07-08 10:03] LABS: Add Manual Diff / Slide Review NO; Basophils Absolute Auto 100 /uL (0-100); Eosinophils Absolute Auto 300 /uL (0-450); Eosinophils Percent Auto 5.6 % (2-4); Hematocrit 38.4 % (36-46); Hemoglobin 12.9 g/dL (12.0-16.0); Lymphocytes Absolute Auto 1600 /uL (1100-4500); Lymphocytes Percent Auto 29.7 % (25-40); Mean Corpuscular HGB Conc 33.6 % (30-36); Mean Corpuscular Hemoglobin 30.2 PG (26-34); Mean Corpuscular Volume 89.9 fL (80-100); Monocytes Absolute Auto 400 /uL (0-900); Monocytes Percent Auto 7.3 % (3-14); Neutrophils Absolute Auto 3000 /uL (1500-7000); Neutrophils Percent Auto 55.4 % (50-75); Platelet Count 187 X10^3/uL (150-400); Red Blood Cell Count 4.28 X10^6/uL (4.0-5.2); Red Cell Distribution Width 13.1 % (11.6-14.8); White Blood Cell Count 5.5 X10^3/uL (4.5-11.0)
[2021-07-08 10:18] LABS: Alanine Aminotransferase 15 IU/L (<35); Albumin 4.2 g/dL (3.5-5.0); Albumin Globulin Ratio 1.5 (1.0-2.8); Alkaline Phosphatase 61 U/L (38-126); Aspartate Aminotransferase 24 IU/L (14-36); BUN Creatinine Ratio 21.6 (6-22); Bilirubin Total 0.4 mg/dL (0.2-1.3); Blood Urea Nitrogen 16 mg/dL (7-17); Calcium 9.4 mg/dL (8.4-10.2); Carbon Dioxide 29 mmol/L (22-32); Chloride 110 mmol/L (98-107); Creatine Kinase 68 U/L (30-135); Estimated Glomerular Filt Rate > 60.0 mL/min (>60); Globulin 2.8 g/dL (1.7-4.1); Glucose 100 mg/dL (80-110); HEMOLYSIS < 15 (0-50); Potassium 3.5 mmol/L (3.4-5.1); Sodium 143 mmol/L (137-145)
[2021-07-08 10:29] LABS: Troponin I < 0.012 ng/mL (0.01-0.034)
--- NOTE | 2021-08-09 | DI.RAD.S_ITS ---
PROCEDURE: XR WRIST LT MIN 3V INDICATIONS: GLF 4 wks ago; Lt wrist still hurts and limited ROM TECHNIQUE: 4. views of the wrist were acquired. COMPARISON: [facility], CR, XR WRIST LT MIN 3V, 07/08/2021, 10:00. FINDINGS: Bones: Lordosis noted in the distal radius concerning for nondisplaced subacute fracture. Rounded lucency noted in the base of the 1st metacarpal. Scaphoid view: Scaphoid is intact. Soft tissues: No suspicious soft tissue calcifications. IMPRESSION: 1. Sclerotic band in the distal radius concerning for nondisplaced subacute fracture. 2. Rounded lucency in the base of the 1st metacarpal of uncertain etiology. Finding could represent sequela of remote trauma or infectious process/Otf abscess. Recommend MRI or bone scan of the of the left wrist for additional evaluation. Dictated by: Daisy Reynolds MD, PhD on 08/09/2021 at 14:59 Approved by: Daisy Reynolds MD, PhD on 08/09/2021 at 15:03
== END 2021-07-08 11:10 | disposition home or self-care (01) ==
PROVIDERS: Emergency Provider Emergency Medicine; PCP Internal Medicine
DX: S00.33XA Contusion of nose, initial encounter (principal); S63.502A Unspecified sprain of left wrist, initial encounter; R07.9 Chest pain, unspecified; W01.0XXA Fall on same level from slipping, tripping and stumbling without subsequent striking against object, initial encounter
CPT/HCPCS: 36415; 70450; 70486; 73110; 80053; 82550; 84484; 85025; 93005; 99284; 99291; 99292

== ENCOUNTER → 2021-08-09 14:41 | Outpatient (CLI) | payer MEDICARE, SELFPAY ==
[2019-08-21 17:59] VITALS: BMI 26.9
== END ==
PROVIDERS: PCP Internal Medicine; Referring Provider Anesthesiology; Visit Provider Anesthesiology
DX: S69.92XA Unspecified injury of left wrist, hand and finger(s), initial encounter (principal); W18.30XA Fall on same level, unspecified, initial encounter
CPT/HCPCS: 73110

== ENCOUNTER → 2022-03-12 12:48 | Outpatient (CLI) | payer MEDICARE, SELFPAY ==
[2019-08-21 17:59] VITALS: BMI 26.9
== END ==
PROVIDERS: PCP Internal Medicine; Referring Provider Orthopaedic Surgery; Visit Provider Orthopaedic Surgery
DX: S46.912A Strain of unspecified muscle, fascia and tendon at shoulder and upper arm level, left arm, initial encounter (principal)

== ENCOUNTER → 2022-03-19 10:30 | Outpatient (CLI) | payer MEDICARE, SELFPAY ==
[2019-08-21 17:59] VITALS: BMI 26.9
--- NOTE | 2022-03-19 10:33 | DI.RAD.S_ITS ---
PROCEDURE: FL SHOULDER INJECTION MR/CT LT INDICATIONS: LEFT SHOULDER STRAIN COMPARISON: [facility] [place], CR, XR SHOULDER 2+ VIEWS LEFT, 12/17/2021, 14:20. [place], CT, CT UE LT W CON, 03/19/2022, 11:20. TECHNIQUE: The indications, alternatives, benefits, risks, and complications of the procedure were explained to the patient. Written informed consent was obtained and placed in the chart. The shoulder was examined fluoroscopically and a site for needle placement chosen for entry into the glenohumeral joint from an anterior approach. The skin was prepped and draped in a sterile fashion, and 1% lidocaine infiltrated from skin down to joint capsule. A spinal needle was inserted into the glenohumeral joint, and a small amount of iodinated contrast media injected to confirm intra-articular placement of the needle tip. This was followed by approximately 12 mL of iodinated contrast. The needle was removed and a dressing was applied. The patient was given postprocedural instructions and sent to the CT suite for imaging. Left pacemaker. FINDINGS: A single fluoroscopic spot image demonstrates intra-articular location of injected iodinated contrast. IMPRESSION: Successful fluoroscopically guided administration of iodinated contrast solution into the shoulder joint for CT arthrogram. Dictated by: Brian Yao M.D. on 03/19/2022 at 14:11 Approved by: Brian Yao M.D. on 03/19/2022 at 14:13
--- NOTE | 2022-03-19 10:36 | DI.CT.S_ITS ---
PROCEDURE: CT UE LT W CON INDICATIONS: LEFT SHOULDER STRAIN TECHNIQUE: After the intra-articular administration of 12 mL of dilute non-ionic contrast, 1-1.5 mm thick sections acquired from the acromioclavicular joint to the inferior scapula, with coronal and sagittal reformatting. COMPARISON: None. FINDINGS: Image quality: Excellent. Bones: Moderate acromioclavicular joint osteoarthritic changes are seen with joint space narrowing, subchondral sclerosis and marginal osteophyte formation depressing the musculotendinous junction of supraspinatus. Mild to moderate glenohumeral joint osteoarthritic changes also seen. No fracture or dislocation. No suspicious intraosseous lesion. The visualized left upper ribs are intact. Soft tissues: There is full-thickness rupture involving mid to posterior fibers of distal supraspinatus at its insertion on the humeral head with up to 1.1 cm medial retraction of torn tendon fibers to the level of acromion. Contrast is seen extending to subacromial subdeltoid bursa. Mild supraspinatus muscle atrophy is seen on sagittal images. No abnormal soft tissue calcifications. No intra-articular loose bodies. Subtle signal abnormality and contrast extension involving superior anterior labrum at 12 to 1 o'clock position is seen suggestive of superior anterior labral tear. Left chest wall pacemaker is seen. No gross abnormality is seen in visualized left lung field. IMPRESSION: 1. Moderate acromioclavicular joint osteoarthritis and [id number] glenohumeral joint osteoarthritis. No fracture or dislocation. No suspicious intraosseous lesion. 2. Full-thickness rupture involving mid to posterior fibers of distal supraspinatus at its insertion on the humeral head with up to 1.1 cm medial retraction of torn tendon fibers and contrast extension to subacromial subdeltoid bursa. Mild supraspinatus muscle atrophy. 3. Finding is concerning for superior anterior labral tear at 12 to 1 o'clock position. Dictated by: Gino Holland M.D. on 03/19/2022 at 14:25 Approved by: Gino Holland M.D. on 03/19/2022 at 14:42
== END ==
PROVIDERS: PCP Physician Assistant; Referring Provider Orthopaedic Surgery; Visit Provider Orthopaedic Surgery
DX: S46.012A Strain of muscle(s) and tendon(s) of the rotator cuff of left shoulder, initial encounter (principal); M19.012 Primary osteoarthritis, left shoulder; X58.XXXA Exposure to other specified factors, initial encounter
CPT/HCPCS: 23350; 73201; 77002

== ENCOUNTER → 2022-12-05 16:33 | Outpatient (CLI) | payer MEDICARE, SELFPAY ==
[2022-11-18 10:52] VITALS: BMI 26.9
[2022-12-05 17:41] LABS: Hematocrit 39.1 % (36-46); Mean Corpuscular HGB Conc 33.3 % (30-36); Mean Corpuscular Hemoglobin 30.1 PG (26-34); Mean Corpuscular Volume 90.4 fL (80-100); Platelet Count 235 X10^3/uL (150-400); Red Blood Cell Count 4.33 X10^6/uL (4.0-5.2); Red Cell Distribution Width 13.5 % (11.6-14.8); White Blood Cell Count 6.3 X10^3/uL (4.5-11.0)
[2022-12-05 17:43] LABS: Alanine Aminotransferase 15 IU/L (<35); Albumin 4.3 g/dL (3.5-5.0); Albumin Globulin Ratio 1.4 (1.0-2.8); Alkaline Phosphatase 74 U/L (38-126); Aspartate Aminotransferase 21 IU/L (14-36); BUN Creatinine Ratio 15.5 (6-22); Bilirubin Total 0.4 mg/dL (0.2-1.3); Blood Urea Nitrogen 11 mg/dL (7-17); Calcium 9.3 mg/dL (8.4-10.2); Carbon Dioxide 30 mmol/L (22-32); Chloride 103 mmol/L (98-107); Cholesterol 193 mg/dL (140-199); Estimated Glomerular Filt Rate > 60 mL/min (>60); Glucose 91 mg/dL (80-110); HDL Cholesterol 67 mg/dL (40-60); HEMOLYSIS < 15 (0-50); LDL Cholesterol Calculated 87 mg/dL (<100); Potassium 3.7 mmol/L (3.4-5.1); Sodium 142 mmol/L (137-145); Total Protein 7.3 g/dL (6.3-8.2); Triglycerides 196 mg/dL (35-150)
[2022-12-05 18:15] LABS: TSH w/ Reflex to FT4 1.35 uIU/mL (0.47-4.68)
== END ==
PROVIDERS: PCP Internal Medicine; Referring Provider Internal Medicine; Visit Provider Internal Medicine
DX: E78.2 Mixed hyperlipidemia (principal); I10 Essential (primary) hypertension; I50.22 Chronic systolic (congestive) heart failure; I67.9 Cerebrovascular disease, unspecified
CPT/HCPCS: 36415; 80053; 80061; 84443; 85027

== ENCOUNTER → 2023-03-25 08:52 | Outpatient (CLI) | payer MEDICARE, SELFPAY ==
[2023-03-13 10:02] VITALS: BMI 26.9
--- NOTE | 2023-03-25 08:54 | DI.RAD.S_ITS ---
PROCEDURE: FL UPPER GI SERIES INDICATIONS: dysphagia, GERD COMPARISON: [facility], CT, CT UE LT W CON, 03/19/2022, 11:20. FINDINGS: Pacemaker. Cholecystectomy clips. Esophagus: Esophageal mucosa is normal on air-contrast views. The esophagus is mildly patulous. There is lwlu-hk-yedomwkk esophageal dysmotility with diminished peristaltic stripping and intermittent tertiary contractions. There is a slouching of contrast in the midesophagus. No strictures, extrinsic mass effects, or diverticula. No hiatal hernia. There is spontaneous and elicited gastroesophageal reflux. There is normal transit of a calibrated barium tablet through the esophagus. Stomach: The stomach is normally distensible, with normal rugal fold thickness. No mucosal masses or ulcers. Pylorus and duodenal bulb appear normal in morphology. Duodenal folds are normal in thickness as well. IMPRESSION: 1. Fwdv-zq-cdvgupcc esophageal dysmotility. Slouching of contrast in the midesophagus. 2. Spontaneous and elicited gastroesophageal reflux. 3. No stricture. Patient reports sensation of esophageal spasming which results in vomiting approximately once per week. This esophageal spasm sensation was not elicited during this exam. Dictated by: Brian Yao M.D. on 03/25/2023 at 9:57 Approved by: Brian Yao M.D. on 03/25/2023 at 10:05
== END ==
PROVIDERS: PCP Internal Medicine; Referring Provider Internal Medicine; Visit Provider Internal Medicine
DX: K22.4 Dyskinesia of esophagus (principal); R13.10 Dysphagia, unspecified; K21.9 Gastro-esophageal reflux disease without esophagitis
CPT/HCPCS: 74240

== ENCOUNTER 2023-07-12 13:43 | Emergency (ER) | payer MEDICARE, SELFPAY ==
[2023-03-13 10:02] VITALS: BMI 26.9
[2023-07-12] VITALS (17 sets, daily range): BP systolic 151–194; BP diastolic 61–79; PULSE 61–73; RESP 18–55; TEMP 36.8; O2SAT 94–99; BMI 27.1
--- NOTE | 2023-07-12 13:59 | DI.CT.S_ITS ---
PROCEDURE: CT CERVICAL SPINE WO CON INDICATIONS: fall on thinners TECHNIQUE: Noncontrast 3 mm thick sections acquired from the skull base to the T4 level. Sagittal and coronal reformats were then constructed. For radiation dose reduction, the following was used: automated exposure control, adjustment of mA and/or kV according to patient size. COMPARISON: None. FINDINGS: Image quality: Excellent. Bones: No fractures or dislocations. There are multilevel degenerative changes of the cervical spine with facet and uncovertebral arthropathy, disc height loss with degenerative endplate changes and spurring. Visualized superior ribs are intact. Soft tissues: Prevertebral soft tissues are normal in thickness. No paravertebral hematomas. No apical pneumothoraces. Partially visualized left chest wall pacemaker. Atherosclerotic vascular calcifications. Biapical pleuroparenchymal scarring. Right apically calcified granuloma. IMPRESSION: No acute fractures or traumatic listhesis. Dictated by: Blaze Santana M.D. on 07/12/2023 at 14:51 Approved by: Blaze Santana M.D. on 07/12/2023 at 14:54
--- NOTE | 2023-07-12 13:59 | DI.RAD.S_ITS ---
PROCEDURE: XR CHEST 1V INDICATIONS: chest pain TECHNIQUE: One view of the chest was acquired. COMPARISON: [facility], [facility], XR CHEST 2V, 05/27/2021, 9:03. [facility], [facility], CHEST 1 VIEW, 06/22/2014, 21:35. FINDINGS: Surgical changes and devices: Left chest wall AICD. Right upper quadrant surgical clips. Lungs and pleura: Lungs are clear. No pleural effusions or pneumothorax. Mediastinum: Mediastinal contours appear normal. Heart size is normal. Bones and chest wall: No suspicious bony lesions. Overlying soft tissues appear unremarkable. IMPRESSION: No acute cardiopulmonary process. Dictated by: Blaze Santana M.D. on 07/12/2023 at 14:48 Approved by: Blaze Santana M.D. on 07/12/2023 at 14:49
--- NOTE | 2023-07-12 13:59 | DI.CT.S_ITS ---
PROCEDURE: CT HEAD/BRAIN WO CON INDICATIONS: fall on thinners TECHNIQUE: Noncontrast 4.5 mm thick angled axial sections acquired from the foramen magnum to the vertex, with coronal and sagittal reformats. For radiation dose reduction, the following was used: automated exposure control, adjustment of mA and/or kV according to patient size. COMPARISON: [facility], CT, CT HEAD/BRAIN WO CON, 07/08/2021, 9:56. FINDINGS: Image quality: Excellent. CSF spaces: Basal cisterns are patent. No extra-axial fluid collections. The ventricles are symmetric in size and shape. Brain: No intracranial bleeds or masses. Stable encephalomalacia and gliosis within the right occipital lobe. There is cerebral volume loss for age, with resultant ventricular and sulcal prominence. There are periventricular and deep white matter chronic small vessel ischemic changes. There is intracranial internal carotid artery atherosclerosis. Skull and face: Calvarium and visualized facial bones appear intact, without suspicious lesions. Bilateral lens replacements. Otherwise, the orbits are unremarkable. Sinuses: Visualized sinuses and mastoids are clear. IMPRESSION: No acute intracranial abnormalities. Dictated by: Blaze Santana M.D. on 07/12/2023 at 14:49 Approved by: Blaze Santana M.D. on 07/12/2023 at 14:51
[2023-07-12 14:22] LABS: Add Manual Diff / Slide Review NO; Basophils Absolute Auto 100 /uL (0-100); Basophils Percent Auto 1.4 % (0-2); Eosinophils Absolute Auto 300 /uL (0-450); Eosinophils Percent Auto 4.2 % (2-4); Hematocrit 39.1 % (36-46); Hemoglobin 13.3 g/dL (12.0-16.0); Lymphocytes Absolute Auto 2500 /uL (1100-4500); Lymphocytes Percent Auto 36.2 % (25-40); Mean Corpuscular HGB Conc 33.9 % (30-36); Mean Corpuscular Hemoglobin 30.7 PG (26-34); Mean Corpuscular Volume 90.6 fL (80-100); Monocytes Absolute Auto 500 /uL (0-900); Monocytes Percent Auto 7.2 % (3-14); Neutrophils Absolute Auto 3500 /uL (1500-7000); Platelet Count 187 X10^3/uL (150-400); Red Blood Cell Count 4.31 X10^6/uL (4.0-5.2); Red Cell Distribution Width 13.6 % (11.6-14.8); White Blood Cell Count 6.9 X10^3/uL (4.5-11.0)
[2023-07-12 14:30] LABS: INR 0.9 (0.9-1.3); Prothrombin Time 9.9 SECONDS (10.1-12.7)
[2023-07-12 14:32] LABS: PTT Partial Thromboplastin Tim 30 SECONDS (26-36)
[2023-07-12 14:34] LABS: Alanine Aminotransferase 19 IU/L (<35); Albumin Globulin Ratio 1.4 (1.0-2.8); Alkaline Phosphatase 58 U/L (38-126); Aspartate Aminotransferase 23 IU/L (14-36); BUN Creatinine Ratio 16.2 (6-22); Bilirubin Total 0.4 mg/dL (0.2-1.3); Blood Urea Nitrogen 11 mg/dL (7-17); Calcium 9.7 mg/dL (8.4-10.2); Carbon Dioxide 28 mmol/L (22-32); Chloride 108 mmol/L (98-107); Creatine Kinase 38 U/L (30-135); Estimated Glomerular Filt Rate > 60 mL/min (>60); Globulin 2.9 g/dL (1.7-4.1); Glucose 114 mg/dL (80-110); HEMOLYSIS < 15 (0-50); Lipase 89 U/L (23-300); Magnesium 1.9 mg/dL (1.6-2.3); Potassium 3.1 mmol/L (3.4-5.1); Sodium 142 mmol/L (137-145); Total Protein 6.9 g/dL (6.3-8.2)
[2023-07-12 14:45] LABS: Troponin I < 0.012 ng/mL (0.01-0.034)
--- NOTE | 2023-07-12 14:47 | ED.FALL ---
HPI - Fall General Chief Complaint: Fall Stated Complaint: Fell t-7/ light headed has to hang on to things Time Seen by Provider: 07/12/23 14:15 Source: patient Mode of arrival: Ambulatory History of Present Illness HPI Narrative: 87-year-old female with history of sick sinus syndrome status post pacemaker, CHF presents by private vehicle from home for lightheadedness after a ground level fall 1 week ago. Patient states that she was walking outside when she passed out and hit her head. No medical care sought after initial syncopal episode. Patient states that she is felt generally lightheaded since that time and she is concerned that she may have a brain bleed and so decided to come today for evaluation. Patient reports previous history of syncope 2 years ago. She was evaluated by Cardiology, and no cause was found. Prior to syncopal event patient denies chest pain, lightheadedness, vision changes, other complaints. Related Data Home Medications Medication Instructions Recorded Confirmed aspirin 81 mg tablet,delayed 81 mg PO DAILY 08/21/19 06/08/23 release (Adult Low Dose Aspirin) cholecalciferol (vitamin D3) 25 1,000 unit PO DAILY 08/21/19 06/08/23 mcg (1,000 unit) capsule (Vitamin D3) dorzolamide 2 % eye drops 1 drp EYE-BOTH BID 08/21/19 06/08/23 travoprost 0.004 % eye drops 1 drp EYE-BOTH DAILY 08/21/19 06/08/23 (Travatan Z) carvedilol 12.5 mg tablet 12.5 mg PO BID 12/05/22 06/08/23 letrozole 2.5 mg tablet 2.5 mg PO DAILY 12/05/22 06/08/23 potassium chloride 10 mEq 10 meq PO DAILY 12/05/22 06/08/23 capsule,extended release telmisartan 20 mg tablet 20 mg PO DAILY 12/05/22 06/08/23 Previous Rx's Medication Instructions Recorded amlodipine 5 mg tablet 5 mg PO DAILY #90 tabs 12/30/22 furosemide 20 mg tablet 20 mg PO DAILY PRN edema #90 tabs 02/20/23 pantoprazole 20 mg tablet,delayed 20 mg PO DAILY #30 tabs 03/13/23 release clopidogrel 75 mg tablet (Plavix) 75 mg PO DAILY #90 tabs 03/19/23 dexamethasone 1 mg tablet 1 mg PO DAILY gout #30 tabs 04/16/23 zolpidem 5 mg tablet 5 mg PO BEDTIME sleep #30 tabs 05/11/23 rosuvastatin 20 mg tablet 20 mg PO DAILY #90 tabs 05/26/23 nitroglycerin 0.4 mg sublingual 0.4 mg sublingual Q5-15M PRN 06/08/23 tablet esophageal spasm #25 tabs lorazepam 0.5 mg tablet 0.5 mg PO BID PRN anxiety #30 tabs 06/09/23 Allergies Allergy/AdvReac Type Severity Reaction Status Date / Time shellfish derived Allergy Severe swelling Verified 06/08/23 14:05 and hives iodine Allergy Hives Verified 06/08/23 14:05 paroxetine AdvReac Drowsy Verified 06/08/23 14:05 Review of Systems Review of Systems Narrative: CONSTITUTIONAL- Denies: fever, chills, fatigue HEENT- Denies: sore throat, nosebleed, vision changes RESPIRATORY- Denies: shortness of breath, cough, wheezing CARDIAC- Denies: chest pain, edema, orthopnea GI- Denies: abdominal pain, nausea, vomiting, constipation, diarrhea - Denies: frequency, dysuria, hematuria, flank pain MSK- Denies: extremity pain, extremity swelling, joint pain, joint swelling SKIN- Denies: rash, itching, burn, swelling NEUROLOGICAL-reports: Lightheaded Denies: headache, numbness, weakness, dizziness PSYCHIATRIC- Denies: anxiety, depression, suicidal ideation, homicidal ideation Patient History Medical History (Updated 07/17/23 @ 11:41 by Su Rock MD) Esophageal spasm Wears glasses Rubella Mumps Measles Chicken pox Hearing loss Cataracts, bilateral Generalized anxiety disorder Venous (peripheral) insufficiency GERD without esophagitis Age-related osteoporosis without current pathological fracture Systolic CHF, chronic Breast cancer (~2019) Insomnia Left homonymous superior quadrantanopia History of malignant melanoma (~2014) Essential hypertension Cerebrovascular disease History of myxoma Glaucoma Osteoporosis Sick sinus syndrome Gout Osteopenia Mixed hyperlipidemia Essential (primary) hypertension Cardiac tamponade Pacemaker (~2000) Surgical History (Updated 06/08/23 @ 13:12 by Henry Kaminski MD) Anesthesia History of lumpectomy Status post blepharoplasty of both eyes History of bowel resection History of hand surgery History of appendectomy History of cholecystectomy History of skin graft Family History Father Myocardial infarction Smoker Mother Endocrine disorder Cancer Brother Mesothelioma Cancer Son No problems noted. Social History household members: spouse Smoking Status: Never smoker alcohol intake: never Smoking Status: Never smoker alcohol intake frequency: 0-2 drinks per day Substance Use Type: does not use Exam Initial Vital Signs Initial Vital Signs: Vital Signs Temperature 98.2 F 07/12/23 13:51 Pulse Rate 73 07/12/23 13:51 Respiratory Rate 18 07/12/23 13:51 Blood Pressure 194/79 H 07/12/23 13:51 Pulse Oximetry 97 07/12/23 13:51 Oxygen Delivery Method Room Air 07/12/23 13:51 Const: Awake, alert, no acute distress, nontoxic appearing, appears stated age Eyes: PERRL, EOMI, conjunctiva normal ENT: Atraumatic, dentition normal, mucous membranes moist Cardiac: regular rate, regular rhythm RESP: unlabored, clear bilaterally, no wheezing GI: Atraumatic, soft, nontender, nondistended, no rebound, no guarding MSK: Atraumatic, full range of motion, pulses equal Skin: Warm, Dry, intact, no rashes Neuro: AO x3, CN II-XII grossly intact, moves all extremities Psych: affect normal, mood normal, not suicidal, not homicidal Course Course Course Narrative: Head injury after syncopal event 1 week ago. Patient currently neurologically intact, no focal deficits. Patient reports that her primary concern is possible brain bleed from the fall, however her syncopal event is concerning for possible cardiogenic syncope. She did state that the exact same episode happen once 2 years ago and no cause was found by Cardiology. We will interrogate pacemaker and we will obtain full cardiac workup. Orders Ordered: ED Orders 07/12/23 13:59 CT cervical spine wo con Stat CT head/brain wo con Stat XR chest 1V Stat 07/12/23 14:05 EKG-12 Lead Stat 07/12/23 14:15 Complete Blood Count AUTO DIFF Stat Comprehensive Metabolic Panel Stat Lipase Stat Magnesium Stat PTT Partial Thromboplastin Alli Stat Prothrombin Time INR Stat Troponin & CK Cardiac Panel Stat Reevaluation(s) Reevaluation #1: Laboratory work is reviewed, unremarkable. CT of the brain shows no acute findings. Pacemaker interrogation shows no events to explain patient's syncopal event. I discussed all lab and imaging findings with the patient and her at bedside. I did recommend admission for additional cardiology evaluation of her syncope. I expressed concern that this could possibly happen again and she could hit her head or have a cardiac event leading to . Patient and expressed understanding of concerns, however she stated that at her age she did not want to spend any time in the hospital overnight and wanted to go home. She states that she will call her controller repairer and tester 1st thing tomorrow morning for a follow up appointment, it is relatively easy to make an appointment and she will discuss the syncopal event with them at her follow up apointment. Patient states that she will return if anything new happens at home. Patient discharged home with in stable condition. Vital Signs Vital signs: Vital Signs - 8 hr 07/12/23 13:51 07/12/23 14:01 07/12/23 14:03 Temperature 98.2 F Pulse Rate 73 72 Respiratory Rate 18 Blood Pressure 194/79 H 173/75 H Pulse Oximetry 97 99 Oxygen Delivery Method Room Air 07/12/23 14:03 07/12/23 14:38 07/12/23 14:38 Temperature Pulse Rate 73 66 71 Respiratory Rate 22 22 Blood Pressure 177/70 H Pulse Oximetry 97 95 97 Oxygen Delivery Method Room Air 07/12/23 15:00 07/12/23 15:14 07/12/23 15:14 Temperature Pulse Rate 63 66 Respiratory Rate 23 20 Blood Pressure 179/72 H Pulse Oximetry 95 96 Oxygen Delivery Method 07/12/23 15:21 07/12/23 15:30 07/12/23 15:31 Temperature Pulse Rate 70 64 Respiratory Rate 22 21 Blood Pressure 164/70 H Pulse Oximetry 95 95 Oxygen Delivery Method 07/12/23 15:31 07/12/23 15:40 07/12/23 15:40 Temperature Pulse Rate 68 66 Respiratory Rate 19 24 Blood Pressure 156/70 H Pulse Oximetry 94 94 Oxygen Delivery Method 07/12/23 15:50 07/12/23 15:50 07/12/23 16:00 Temperature Pulse Rate 64 Respiratory Rate 19 Blood Pressure 154/71 H 165/75 H Pulse Oximetry 94 Oxygen Delivery Method 07/12/23 16:00 07/12/23 16:10 07/12/23 16:10 Temperature Pulse Rate 67 63 Respiratory Rate 55 H 23 Blood Pressure 168/75 H Pulse Oximetry 96 96 Oxygen Delivery Method 07/12/23 16:20 07/12/23 16:20 Temperature Pulse Rate 64 Respiratory Rate 23 Blood Pressure 151/61 H Pulse Oximetry 96 Oxygen Delivery Method MDM - Fall Lab Data 07/12/23 14:15 07/12/23 14:15 Labs: Lab Results 07/12/23 Range/Units 14:15 WBC 6.9 (4.5-11.0) X10^3/uL RBC 4.31 (4.0-5.2) X10^6/uL Hgb 13.3 (12.0-16.0) g/dL Hct 39.1 (36-46) % MCV 90.6 (80-100) fL MCH 30.7 (26-34) PG MCHC 33.9 (30-36) % RDW 13.6 (11.6-14.8) % Plt Count 187 (150-400) X10^3/uL Neut % (Auto) 51.0 (50-75) % Lymph % (Auto) 36.2 (25-40) % Oliver % (Auto) 7.2 (3-14) % Eos % (Auto) 4.2 H (2-4) % Baso % (Auto) 1.4 (0-2) % Neut # (Auto) 3500 (7316-5042) /uL Lymph # (Auto) 2500 (3487-2693) /uL Oliver # (Auto) 500 (0-900) /uL Eos # (Auto) 300 (0-450) /uL Baso # (Auto) 100 (0-100) /uL PT 9.9 L (10.1-12.7) SECONDS INR 0.9 (0.9-1.3) APTT 30 (26-36) SECONDS Sodium 142 (137-145) mmol/L Potassium 3.1 L (3.4-5.1) mmol/L Chloride 108 H (98-107) mmol/L Carbon Dioxide 28 (22-32) mmol/L BUN 11 (7-17) mg/dL Creatinine 0.68 (0.52-1.04) mg/dL Estimated GFR > 60 (>60) mL/min BUN/Creatinine Ratio 16.2 (6-22) Glucose 114 H (80-110) mg/dL Calcium 9.7 (8.4-10.2) mg/dL Magnesium 1.9 (1.6-2.3) mg/dL Total Bilirubin 0.4 (0.2-1.3) mg/dL AST 23 (14-36) IU/L ALT 19 (<35) IU/L Alkaline Phosphatase 58 (38-126) U/L Total Creatine Kinase 38 (30-135) U/L Troponin I < 0.012 (0.01-0.034) ng/mL Total Protein 6.9 (6.3-8.2) g/dL Albumin 4.0 (3.5-5.0) g/dL Globulin 2.9 (1.7-4.1) g/dL Albumin/Globulin Ratio 1.4 (1.0-2.8) Lipase 89 (23-300) U/L Discharge Plan Departure Patient Disposition: Home Clinical Impression: Syncope, Head injury, Pacemaker Instructions: DI for Syncope in Adults (Fainting), Fainting Activity Restrictions/Additional Instructions: MAKE SURE TO CALL DR. NG FIRST THING TOMORROW MORNING Prescriptions: No Action amlodipine 5 mg tablet 5 mg PO DAILY Qty: 90 3RF furosemide 20 mg tablet 20 mg PO DAILY PRN (Reason: edema) Qty: 90 2RF clopidogrel [Plavix] 75 mg tablet 75 mg PO DAILY Qty: 90 3RF dexamethasone 1 mg tablet 1 mg PO DAILY Qty: 30 0RF zolpidem 5 mg tablet 5 mg PO BEDTIME Qty: 30 5RF rosuvastatin 20 mg tablet 20 mg PO DAILY Qty: 90 3RF lorazepam 0.5 mg tablet 0.5 mg PO BID PRN (Reason: anxiety) Qty: 30 5RF telmisartan 20 mg tablet 20 mg PO DAILY potassium chloride 10 mEq capsule, extended release 10 meq PO DAILY letrozole 2.5 mg tablet 2.5 mg PO DAILY carvedilol 12.5 mg tablet 12.5 mg PO BID Rx Instructions: must administer with a meal/food nitroglycerin 0.4 mg tablet, sublingual 0.4 mg sublingual Q5-15M PRN (Reason: esophageal spasm) Qty: 25 3RF Rx Instructions: do not exceed 3 doses per episode pantoprazole 20 mg tablet,delayed release (DR/EC) 20 mg PO DAILY Qty: 30 1RF aspirin [Adult Low Dose Aspirin] 81 mg Tablet,Delayed Release (Dr/Ec) 81 mg PO DAILY Travatan Z 0.004 % Drops 1 drp EYE-BOTH DAILY dorzolamide 2 % Drops 1 drp EYE-BOTH BID cholecalciferol (vitamin D3) [Vitamin D3] 1,000 unit Capsule 1,000 unit PO DAILY Referrals: Henry Kaminski MD [Primary Care Provider] - Stand Alone Forms: Patient Portal/API
== END 2023-07-12 17:00 | disposition home or self-care (01) ==
PROVIDERS: Emergency Provider Emergency Medicine; PCP Internal Medicine
DX: S09.90XA Unspecified injury of head, initial encounter (principal); R55 Syncope and collapse; R07.9 Chest pain, unspecified; W18.30XA Fall on same level, unspecified, initial encounter; Z79.01 Long term (current) use of anticoagulants
CPT/HCPCS: 36415; 70450; 71045; 72125; 80053; 82550; 83690; 83735; 84484; 85025; 85610; 85730; 93005; 99283; 99284

== ENCOUNTER → 2024-02-18 13:14 | Outpatient (CLI) | payer MEDICARE, SELFPAY ==
[2023-03-13 10:02] VITALS: BMI 26.9
--- NOTE | 2024-02-18 13:15 | DI.CT.S_ITS ---
PROCEDURE: CT HEAD/BRAIN WO/W CON INDICATIONS: Malignant melanoma of skin, unspecified TECHNIQUE: 4.5 mm thick angled axial sections acquired from the foramen magnum to the vertex both before and after the administration of intravenous contrast, with coronal and sagittal reformats. For radiation dose reduction, the following was used: automated exposure control, adjustment of mA and/or kV according to patient size. COMPARISON: [facility], CT, CT HEAD/BRAIN WO CON, 07/08/2021, 9:56. [facility], CT, CT HEAD/BRAIN WO CON, 07/12/2023, 14:02. FINDINGS: Image quality: Excellent. CSF spaces: Basal cisterns are patent. No extra-axial fluid collections. Ventricles are symmetric in size and shape. Brain: No midline shift. No intracranial bleeds or masses. No abnormal intracranial enhancement. There is cerebral volume loss for age. There is periventricular white matter chronic small vessel ischemic change. 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 There is intracranial internal carotid artery atherosclerosis. Skull and face: Calvarium and visualized facial bones appear intact, without suspicious lesions. Incidental note is made of hyperostosis frontalis. This is not considered to be pathologic in a woman of this age. Sinuses: Visualized sinuses and mastoids are clear. IMPRESSION: To the limits of CT, no masses or abnormal enhancement can be seen. 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 Dictated by: Kody Daugherty M.D. on 02/18/2024 at 14:03 Approved by: Kody Daugherty M.D. on 02/18/2024 at 14:05
[2024-02-18 13:51] LABS: Estimated Glomerular Filt Rate 58 mL/min (>60)
== END ==
LOC: CT 13:15
PROVIDERS: Radiology Diagnostic Radiology; PCP Internal Medicine; Referring Provider Surgery; Visit Provider Surgery
DX: C43.8 Malignant melanoma of overlapping sites of skin (principal); Z86.73 Personal history of transient ischemic attack (TIA), and cerebral infarction without residual deficits
CPT/HCPCS: 70470; 82565; Q9967

== ENCOUNTER → 2024-12-19 14:13 | Outpatient (CLI) | payer MEDICARE, SELFPAY ==
[2023-03-13 10:02] VITALS: BMI 26.9
[2024-12-19 15:28] LABS: Hematocrit 38.6 % (36-46); Mean Corpuscular HGB Conc 33.6 % (30-36); Mean Corpuscular Hemoglobin 30.8 PG (26-34); Mean Corpuscular Volume 91.7 fL (80-100); Platelet Count 280 X10^3/uL (150-400); Red Blood Cell Count 4.21 X10^6/uL (4.0-5.2); Red Cell Distribution Width 13.5 % (11.6-14.8); White Blood Cell Count 7.1 X10^3/uL (4.5-11.0)
[2024-12-19 16:00] LABS: Alanine Aminotransferase 17 IU/L (<35); Albumin 4.2 g/dL (3.5-5.0); Albumin Globulin Ratio 1.4 (1.0-2.8); Alkaline Phosphatase 77 U/L (38-126); Aspartate Aminotransferase 26 IU/L (14-36); BUN Creatinine Ratio 16.5 (6-22); Bilirubin Total 0.3 mg/dL (0.2-1.3); Blood Urea Nitrogen 15 mg/dL (7-17); Calcium 9.7 mg/dL (8.4-10.2); Carbon Dioxide 31 mmol/L (22-32); Chloride 105 mmol/L (98-107); Cholesterol 251 mg/dL (140-199); Estimated Glomerular Filt Rate > 60 mL/min (>60); Globulin 3.1 g/dL (1.7-4.1); Glucose 109 mg/dL (80-110); HDL Cholesterol 59 mg/dL (40-60); HEMOLYSIS < 15 (0-50); LDL Cholesterol Calculated 142 mg/dL (<100); Potassium 3.8 mmol/L (3.4-5.1); Sodium 143 mmol/L (137-145); Total Protein 7.3 g/dL (6.3-8.2); Triglycerides 251 mg/dL (35-150)
[2024-12-19 16:29] LABS: TSH w/ Reflex to FT4 1.67 uIU/mL (0.47-4.68)
== END ==
PROVIDERS: PCP Internal Medicine; Referring Provider Internal Medicine; Visit Provider Internal Medicine
DX: I67.9 Cerebrovascular disease, unspecified (principal); I10 Essential (primary) hypertension; E78.2 Mixed hyperlipidemia
CPT/HCPCS: 80053; 80061; 84443; 85027